=== PATIENT | female | born 2000 | race African-American/Black ===

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

== ENCOUNTER 2018-01-24 03:10 | Emergency (ER) | payer MEDICAID ==
[~2018-01-24] VITALS: Ht 172.7 cm; Wt 81.6 kg
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
--- OUTSIDE RECORDS SUMMARY | 2018-01-24 03:22 | XMS REPORT | Continuity of Care Document ---
Author Author [facility] Address Unknown Phone Unavailable Allergies Active Description Code Type Severity Reaction Onset Reported/Identified Relationship to Patient Clinical Status Yes adh Drug Allergy 12/01/2011 Yes adhesive Drug Allergy 12/01/2011 Yes tape Drug Allergy 12/01/2011 Yes Penicillins [id number] Drug Allergy Unknown N/A 11/21/2017 Yes TAPE TAPE Unknown N/A 11/21/2017 Medications There is no data. Problems Date Dx Coded Attending Type Code Diagnosis Diagnosed By 01/12/2008 780.52 INSOMNIA UNSPECIFIED 01/12/2008 783.6 POLYPHAGIA 01/12/2008 780.52 INSOMNIA UNSPECIFIED 01/12/2008 783.6 POLYPHAGIA 01/12/2008 780.52 INSOMNIA UNSPECIFIED 01/12/2008 783.6 POLYPHAGIA 01/12/2008 780.52 INSOMNIA UNSPECIFIED 01/12/2008 783.6 POLYPHAGIA 01/12/2008 780.52 INSOMNIA UNSPECIFIED 01/12/2008 783.6 POLYPHAGIA 01/12/2008 780.52 INSOMNIA UNSPECIFIED 01/12/2008 783.6 POLYPHAGIA 01/12/2008 RAJOTTE FINANCIAL ADVOCATE, ADIRANNA A 780.52 INSOMNIA UNSPECIFIED 01/12/2008 RAJOTTE FINANCIAL ADVOCATE, ADRIANNA A 783.6 POLYPHAGIA 01/12/2008 RAJOTTE FINANCIAL ADVOCATE, ADRIANNA A 780.52 INSOMNIA UNSPECIFIED 01/12/2008 RAJOTTE FINANCIAL ADVOCATE, ADRIANNA A 783.6 POLYPHAGIA 01/12/2008 RAJOTTE FINANCIAL ADVOCATE, ADRIANNA A 780.52 INSOMNIA UNSPECIFIED 01/12/2008 RAJOTTE FINANCIAL ADVOCATE, ADRIANNA A 783.6 POLYPHAGIA 01/12/2008 RAJOTTE FINANCIAL ADVOCATE, ADRIANNA A 780.52 INSOMNIA UNSPECIFIED 01/12/2008 RAJOTTE FINANCIAL ADVOCATE, ADRIANNA A 783.6 POLYPHAGIA 01/12/2008 RAJOTTE FINANCIAL ADVOCATE, ADRIANNA A 780.52 INSOMNIA UNSPECIFIED 01/12/2008 RAJOTTE FINANCIAL ADVOCATE, ADRIANNA A 783.6 POLYPHAGIA 01/12/2008 AMELIA SABILLON, [...] 780.79 MALAISE AND FATIGUE 01/26/2008 RAJJOSE GE FINANCIAL ADVOCATE, ADRIANNA A 780.79 MALAISE AND FATIGUE 01/26/2008 RAJJOSE GE FINANCIAL ADVOCATE, ADRIANNA A 780.79 MALAISE AND FATIGUE 01/26/2008 RAJJOSE GE FINANCIAL ADVOCATE, ADRIANNA A 780.79 MALAISE AND FATIGUE 01/26/2008 RAJOTTE FINANCIAL ADVOCATE, ADRIANNA A 780.79 MALAISE AND FATIGUE 01/26/2008 RAJOTTE FINANCIAL ADVOCATE, ADRIANNA A 780.79 MALAISE AND FATIGUE 01/26/2008 RAJOTTE FINANCIAL ADVOCATE, ADRIANNA A 780.79 MALAISE AND FATIGUE 01/26/2008 SAMEERA ANNE APRN N 780.79 MALAISE AND FATIGUE 10/30/2008 078.10 WARTS 10/30/2008 078.10 WARTS 10/30/2008 078.10 WARTS 10/30/2008 078.10 WARTS 10/30/2008 078.10 WARTS 10/30/2008 078.10 WARTS 10/30/2008 RAJOTTE FINANCIAL ADVOCATE, ADRIANNA A 078.10 WARTS 10/30/2008 RAJOTTE FINANCIAL ADVOCATE, ADRIANNA A 078.10 WARTS 10/30/2008 RAJOTTE FINANCIAL ADVOCATE, ADRIANNA A 078.10 WARTS 10/30/2008 RAJOTTE FINANCIAL ADVOCATE, ADRIANNA A 078.10 WARTS 10/30/2008 NABILAE FINANCIAL ADVOCATE, ADRIANNA A 078.10 WARTS 10/30/2008 RAJOTTE FINANCIAL ADVOCATE, ADRIANNA A 078.10 WARTS 10/30/2008 BRISEIDA JACOBSON FINANCIAL ADVOCATE, SAMEERA N 078.10 WARTS 12/30/2010 V70.3 SPORTS/SCHOOL EXAM 12/30/2010 V70.3 SPORTS/SCHOOL EXAM 12/30/2010 V70.3 SPORTS/SCHOOL EXAM 12/30/2010 V70.3 SPORTS/SCHOOL EXAM 12/30/2010 V70.3 SPORTS/SCHOOL EXAM 12/30/2010 V70.3 SPORTS/SCHOOL EXAM 12/30/2010 RAJOTTE FINANCIAL ADVOCATE, ADRIANNA A V70.3 SPORTS/SCHOOL EXAM 12/30/2010 RAJOTTE FINANCIAL ADVOCATE, ADRIANNA A V70.3 SPORTS/SCHOOL EXAM 12/30/2010 RAJOTTE FINANCIAL ADVOCATE, ADRIANNA A V70.3 SPORTS/SCHOOL EXAM 12/30/2010 ISSAOTTE FINANCIAL ADVOCATE, ADRIANNA A V70.3 SPORTS/SCHOOL EXAM 12/30/2010 NABILAE FINANCIAL ADVOCATE, ADRIANNA A V70.3 SPORTS/SCHOOL EXAM 12/30/2010 NABILAE FINANCIAL ADVOCATE, ADRIANNA A V70.3 SPORTS/SCHOOL EXAM 12/30/2010 SAMEERA ANNE APRN N V70.3 SPORTS/SCHOOL EXAM 05/14/2011 V20.2 WELL CHILD 05/14/2011 V20.2 WELL CHILD 05/14/2011 V20.2 WELL CHILD 05/14/2011 V20.2 WELL CHILD 05/14/2011 V20.2 WELL CHILD 05/14/2011 V20.2 WELL CHILD 05/14/2011 RAJJOSE GE FINANCIAL ADVOCATE, ADRIANNA A V20.2 WELL CHILD 05/14/2011 RAJJOSE GE FINANCIAL ADVOCATE, ADRIANNA A V20.2 WELL CHILD 05/14/2011 RAJOTTE FINANCIAL ADVOCATE, ADRIANNA A V20.2 WELL CHILD 05/14/2011 RAJOTTE FINANCIAL ADVOCATE, ADRIANNA A V20.2 WELL CHILD 05/14/2011 NABILAE FINANCIAL ADVOCATE, ADRIANNA A V20.2 WELL CHILD 05/14/2011 ISSAOTTE FINANCIAL ADVOCATE, ADRIANNA A V20.2 WELL CHILD 05/14/2011 SAMEERA ANNE APRN N V20.2 WELL CHILD 06/08/2011 465.9 UPPER RESPIRATORY INFECTION 06/08/2011 465.9 UPPER RESPIRATORY INFECTION 06/08/2011 465.9 UPPER RESPIRATORY INFECTION 06/08/2011 465.9 UPPER RESPIRATORY INFECTION 06/08/2011 465.9 Upper Respiratory Infection 06/08/2011 465.9 Upper Respiratory Infection 06/08/2011 AMELIA FINANCIAL ADVOCATE, ADRIANNA A 465.9 Upper Respiratory Infection 06/08/2011 ISSAOTTE FINANCIAL ADVOCATE, ADRIANNA A 465.9 Upper Respiratory Infection 06/08/2011 ISSAOTTE FINANCIAL ADVOCATE, ADRIANNA A 465.9 Upper Respiratory Infection 06/08/2011 ISSAOTTE FINANCIAL ADVOCATE, ADRIANNA A 465.9 Upper Respiratory Infection 06/08/2011 ISSAOTTE FINANCIAL ADVOCATE, ADRIANNA A 465.9 Upper Respiratory Infection 06/08/2011 AMELIA FINANCIAL ADVOCATE, ADRIANNA A 465.9 Upper Respiratory Infection 06/08/2011 [...] Luis A V65.45 Std Counseling 12/01/2011 AMELIA FINANCIAL ADVOCATEADRIANNA Luis A V25.02 CONTRACEPTION - ANY METHOD 12/01/2011 AMELIA FINANCIAL ADVOCATEADRIANNA Luis A V65.45 Std Counseling 12/01/2011 BRISEIDA PEREZLISETH FINANCIAL ADVOCATE, SAMEERA N V25.02 CONTRACEPTION - ANY METHOD 12/01/2011 BRISEIDA JACOBSON FINANCIAL ADVOCATE, SAMEERA N V65.45 Std Counseling 02/11/2012 462 [...] CISNEROS APRN A 477.9 RHINITIS 02/11/2012 ISSAROSY FINANCIAL ADVOCATEADRIANNA Luis A V04.89 GARDASIL (HPV) DX 02/11/2012 ADRIANNA CISNEROS APRN A 462 PHARYNGITIS ACUTE 02/11/2012 ADRIANNA CISNEROS APRN A 477.9 RHINITIS 02/11/2012 ADRIANNA CISNEROS APRN A V04.89 GARDASIL (HPV) DX 02/11/2012 ADRIANNA CISNEROS APRN A 462 PHARYNGITIS ACUTE 02/11/2012 RAJOTTE FINANCIAL ADVOCATE, ADRIANNA A 477.9 RHINITIS 02/11/2012 RAJJOSE GE FINANCIAL ADVOCATE, ADRIANNA A V04.89 GARDASIL (HPV) DX 02/11/2012 RAJOTTE FINANCIAL ADVOCATE, ADRIANNA A 462 PHARYNGITIS ACUTE 02/11/2012 RAJOTTE FINANCIAL ADVOCATE, ADRIANNA A 477.9 RHINITIS 02/11/2012 RAJOTTE FINANCIAL ADVOCATE, ADRIANNA A V04.89 GARDASIL (HPV) DX 02/11/2012 RAJOTTE FINANCIAL ADVOCATE, ADRIANNA A 462 PHARYNGITIS ACUTE 02/11/2012 RAJOTTE FINANCIAL ADVOCATE, ADRIANNA A 477.9 RHINITIS 02/11/2012 RAJOTTE FINANCIAL ADVOCATE, ADRIANNA A V04.89 GARDASIL (HPV) DX 02/11/2012 RAJOTTE FINANCIAL ADVOCATE, ADRIANNA A 462 PHARYNGITIS ACUTE 02/11/2012 RAJOTTE FINANCIAL ADVOCATE, ADRIANNA A 477.9 RHINITIS 02/11/2012 RAJOTTE FINANCIAL ADVOCATE, ADRIANNA A V04.89 GARDASIL (HPV) DX 02/11/2012 BRISEIDA JACOBSON APRN, SAMEERA N 462 PHARYNGITIS ACUTE 02/11/2012 BRISEIDA JACOBSON FINANCIAL ADVOCATE, SAMEERA N 477.9 RHINITIS 02/11/2012 BRISEIDA JACOBSON FINANCIAL ADVOCATE, SAMEERA N V04.89 GARDASIL (HPV) DX 02/18/2012 724.2 BACK PAIN, LOWER 02/18/2012 724.2 BACK PAIN, LOWER 02/18/2012 724.2 BACK PAIN, LOWER 02/18/2012 724.2 BACK PAIN, LOWER 02/18/2012 724.2 Back Pain, Lower 02/18/2012 724.2 Back Pain, Lower 02/18/2012 RAJOTTE FINANCIAL ADVOCATE, ADRIANNA A 724.2 Back Pain, Lower 02/18/2012 RAJOTTE FINANCIAL ADVOCATE, ADRIANNA A 724.2 Back Pain, Lower 02/18/2012 RAJOTTE FINANCIAL ADVOCATE, ADRIANNA A 724.2 Back Pain, Lower 02/18/2012 RAJOTTE FINANCIAL ADVOCATE, ADRIANNA A 724.2 Back Pain, Lower 02/18/2012 RAJOTTE FINANCIAL ADVOCATE, ADRIANNA A 724.2 Back Pain, Lower 02/18/2012 RAJOTTE FINANCIAL ADVOCATE, ADRIANNA A 724.2 Back Pain, Lower 02/18/2012 [...] V25.49 CONTRACEPTION SURVEILLANCE (REPEAT RX) 02/25/2012 NABILAE FINANCIAL ADVOCATE, ADRIANNA A V04.81 Flu Dx (3 Yrs And Above, Im) 02/25/2012 RAJJOSE GE FINANCIAL ADVOCATE, ADRIANNA A V25.49 CONTRACEPTION SURVEILLANCE (REPEAT RX) 02/25/2012 NABILAE FINANCIAL ADVOCATE, ADRIANNA A V04.81 Flu Dx (3 Yrs And Above, Im) 02/25/2012 RAJJOSE GE FINANCIAL ADVOCATE, ADRIANNA A V25.49 CONTRACEPTION SURVEILLANCE (REPEAT RX) 02/25/2012 RAJOTTE FINANCIAL ADVOCATE, ADRIANNA A V04.81 Flu Dx (3 Yrs And Above, Im) 02/25/2012 RAJOTTE FINANCIAL ADVOCATE, ADRIANNA A V25.49 CONTRACEPTION SURVEILLANCE (REPEAT RX) 02/25/2012 RAJOTTE FINANCIAL ADVOCATE, ADRIANNA A V04.81 Flu Dx (3 Yrs And Above, Im) 02/25/2012 RAJOTTE FINANCIAL ADVOCATE, ADRIANNA A V25.49 CONTRACEPTION SURVEILLANCE (REPEAT RX) 02/25/2012 RAJJOSE GE FINANCIAL ADVOCATE, ADRIANNA A V04.81 Flu Dx (3 Yrs And Above, Im) 02/25/2012 NABILAE FINANCIAL ADVOCATE, ADRIANNA A V25.49 CONTRACEPTION SURVEILLANCE (REPEAT RX) 02/25/2012 AMELIA SABILLON, ADRIANNA A V04.81 Flu Dx (3 Yrs And Above, Im) 02/25/2012 AMELIA SABILLON, ADRIANNA A V25.49 CONTRACEPTION SURVEILLANCE (REPEAT RX) 02/25/2012 SAMEERA ANNE APRN N V04.81 Flu Dx (3 Yrs And Above, Im) 02/25/2012 GOINS ANALISETH FINANCIAL ADVOCATE, SAMEERA N V25.49 CONTRACEPTION SURVEILLANCE (REPEAT RX) 05/26/2012 079.99 VIRAL SYNDROME 05/26/2012 564.00 CONSTIPATION 05/26/2012 079.99 VIRAL SYNDROME 05/26/2012 564.00 CONSTIPATION 05/26/2012 079.99 Viral Syndrome 05/26/2012 564.00 CONSTIPATION 05/26/2012 079.99 Viral Syndrome 05/26/2012 564.00 CONSTIPATION 05/26/2012 NABILAE FINANCIAL ADVOCATE, ADRIANNA A 079.99 Viral Syndrome 05/26/2012 NABILAE FINANCIAL ADVOCATE, ADRIANNA A 564.00 CONSTIPATION 05/26/2012 RAJOTTE FINANCIAL ADVOCATE, ADRIANNA A 079.99 Viral Syndrome 05/26/2012 RAJOTTE FINANCIAL ADVOCATE, ADRIANNA A 564.00 CONSTIPATION 05/26/2012 RAJOTTE FINANCIAL ADVOCATE, ADRIANNA A 079.99 Viral Syndrome 05/26/2012 RAJOTTE FINANCIAL ADVOCATE, ADRIANNA A 564.00 CONSTIPATION 05/26/2012 RAJOTTE FINANCIAL ADVOCATE, ADRIANNA A 079.99 Viral Syndrome 05/26/2012 RAJOTTE FINANCIAL ADVOCATE, ADRIANNA A 564.00 CONSTIPATION 05/26/2012 RAJOTTE FINANCIAL ADVOCATE, ADRIANNA A 079.99 Viral Syndrome 05/26/2012 RAJOTTE FINANCIAL ADVOCATE, ADRIANNA A 564.00 CONSTIPATION 05/26/2012 RAJOTTE FINANCIAL ADVOCATE, ADRIANNA A 079.99 Viral Syndrome 05/26/2012 RAJOTTE FINANCIAL ADVOCATE, ADRIANNA A 564.00 CONSTIPATION 05/26/2012 GOINS ANALISETH SABILLON SAMEERA N 079.99 Viral Syndrome 05/26/2012 BRISEIDA JACOBSON APRN SAMEERA N 564.00 CONSTIPATION 06/09/2012 787.91 DIARRHEA 06/09/2012 789.07 ABDOMINAL PAIN GENERALIZED 06/09/2012 787.91 Diarrhea 06/09/2012 789.07 Abdominal Pain Generalized 06/09/2012 787.91 Diarrhea 06/09/2012 789.07 Abdominal Pain Generalized 06/09/2012 RAJOTTE FINANCIAL ADVOCATE, ADRIANNA A 787.91 Diarrhea 06/09/2012 RAJOTTE FINANCIAL ADVOCATE, ADRIANNA A 789.07 Abdominal Pain Generalized 06/09/2012 RAJOTTE FINANCIAL ADVOCATE, ADRIANNA A 787.91 Diarrhea 06/09/2012 RAJOTTE FINANCIAL ADVOCATE, ADRIANNA A 789.07 Abdominal Pain Generalized 06/09/2012 RAJOTTE FINANCIAL ADVOCATE, ADRIANNA A 787.91 Diarrhea 06/09/2012 RAJOTTE FINANCIAL ADVOCATE, ADRIANNA A 789.07 Abdominal Pain Generalized 06/09/2012 RAJOTTE FINANCIAL ADVOCATE, ADRIANNA A 787.91 Diarrhea 06/09/2012 RAJOTTE FINANCIAL ADVOCATE, ADRIANNA A 789.07 Abdominal Pain Generalized 06/09/2012 RAJOTTE FINANCIAL ADVOCATE, ADRIANNA A 787.91 Diarrhea 06/09/2012 RAJOTTE FINANCIAL ADVOCATE, ADRIANNA A 789.07 Abdominal Pain Generalized 06/09/2012 RAJOTTE FINANCIAL ADVOCATE, ADRIANNA A 787.91 Diarrhea 06/09/2012 RAJOTTE FINANCIAL ADVOCATE, ADRIANNA A 789.07 Abdominal Pain Generalized 06/09/2012 GOINS CASHERO FINANCIAL ADVOCATE, SAMEERA N 787.91 Diarrhea 06/09/2012 GOINS CASHERO FINANCIAL ADVOCATE, SAMEERA N 789.07 Abdominal Pain Generalized 05/24/2013 RAJOTTE FINANCIAL ADVOCATE, ADRIANNA A 788.1 DYSURIA 05/24/2013 RAJOTTE FINANCIAL ADVOCATE, ADRIANNA A 788.1 DYSURIA 05/24/2013 RAJOTTE FINANCIAL ADVOCATE, ADRIANNA A 788.1 DYSURIA 05/24/2013 GOINS CASHERO FINANCIAL ADVOCATE, SAMEERA N 788.1 DYSURIA 11/07/2013 NABILAE FINANCIAL ADVOCATE, ADRIANNA A V03.89 MENINGOCOCCAL DX 11/07/2013 NABILAE FINANCIAL ADVOCATE, ADRIANNA A V03.89 MENINGOCOCCAL DX 11/07/2013 GOINS CASHLISETH FINANCIAL ADVOCATE, SAMEERA N V03.89 MENINGOCOCCAL DX 01/17/2014 AMELIA HUTCHISONN, ADRIANNA A 373.11 STYE (HORDEOLUM EXTERNUM) 01/17/2014 GOINS SAMEERA JACOBSON APRN N 373.11 STYE (HORDEOLUM EXTERNUM) 06/06/2014 GOINS SAMEERA JACOBSON APRN N 611.71 MASTODYNIA 09/03/2016 CARLIE HURLEY FINANCIAL ADVOCATE Ot N92.6 IRREGULAR MENSTRUATION, UNSPECIFIED 01/22/2017 CARLIE HURLEY FINANCIAL ADVOCATE Ot N92.6 IRREGULAR MENSTRUATION, UNSPECIFIED 01/22/2017 CARLIE HURLEY FINANCIAL ADVOCATE Ot N92.6 IRREGULAR MENSTRUATION, UNSPECIFIED 02/03/2017 CARLIE HURLEY R FINANCIAL ADVOCATE Ot N92.6 IRREGULAR MENSTRUATION, UNSPECIFIED 02/03/2017 CARLIE HURLEY R FINANCIAL ADVOCATE Ot N92.6 IRREGULAR MENSTRUATION, UNSPECIFIED 09/02/2017 CARLIE HURLEY APRN Ot N92.6 IRREGULAR MENSTRUATION, UNSPECIFIED 09/02/2017 JONATHAN MESSINA MD Ot N72 INFLAMMATORY DISEASE OF CERVIX UTERI [...] Ot Z32.01 ENCOUNTER FOR TEST, RESULT POS 11/21/2017 PAOLA KIDD MD Ot O99.89 OTH DISEASES AND CONDITIONS COMPL PREG/C 11/21/2017 PAOLA KIDD MD Ot R19.7 DIARRHEA, UNSPECIFIED 11/21/2017 PAOLA KIDD MD Ot Z3A.01 LESS THAN 8 WEEKS GESTATION OF 11/21/2017 PAOLA KIDD MD Ot Z88.0 ALLERGY STATUS TO PENICILLIN 11/21/2017 PAOLA KIDD MD Ot Z90.89 ACQUIRED ABSENCE OF OTHER ORGANS 11/23/2017 PAOLA KIDD MD Ot O99.89 OTH DISEASES AND CONDITIONS COMPL PREG/C 11/23/2017 PAOLA KIDD MD Ot R19.7 DIARRHEA, UNSPECIFIED 11/23/2017 PAOLA KIDD MD Ot Z3A.01 LESS THAN 8 WEEKS GESTATION OF 11/23/2017 PAOLA KIDD MD Ot Z88.0 ALLERGY STATUS TO PENICILLIN 11/23/2017 PAOLA KIDD MD Ot Z90.89 ACQUIRED ABSENCE OF OTHER ORGANS 01/05/2018 HURLEYCARLIE Giordano RAMANDEEP Ot N92.6 IRREGULAR MENSTRUATION, UNSPECIFIED Procedures Code Description [place] [address] THERAPUTIC INJ SQ/IM 05/26/2012 J1055 DEPO-PROVERA INJ 150 MG 05/26/2012 32354 URINE TEST (IN- HOUSE) 05/26/2012 40840 INFLUENZA A & B (IN-HOUSE) 05/26/2012 41495 UA LONG DIP 05/26/2012 09595 STREP A (IN-HOUSE) 08/11/2012 Family Pr Jessica, Geraldine 08/12/2012 OtolarynDelores Davidson 09/04/2012 21571 VISUAL ACUITY SCREEN 03/01/2013 72237 UA LONG DIP 05/24/2013 59271 CULTURE URINE 05/24/2013 34005 VISUAL ACUITY SCREEN 11/08/2013 27939 UA LONG DIP 08/29/2014 Results Test Result [...] in urine sediment by light microscopy NEGATIVE NR Complete urinalysis with reflex to culture NO [...] group - 11/21/17 10:53 ABO+Rh group OP [facility] Transfusion band number [id number] [facility] Whole blood basic metabolic panel - 11/21/17 [...] 10:53 Serum or plasma choriogonadotropin measurement (units/volume) 66893 m[iU]/mL <5 Encounters ACCT No. Visit Date/Time Discharge Status Pt. Type Provider Facility Loc./Unit Complaint [id number] 08/29/2014 13:57:00 08/29/2014 23:59:59 CLS Outpatient GOINS KAVON HUTCHISONJanelle SAMEERA Janelle [id number] 01/17/2014 11:04:00 01/17/2014 23:59:59 CLS Outpatient AMELIA RAMANDEEP ADRIANNA A [id number] 11/07/2013 10:22:00 11/07/2013 23:59:59 CLS Outpatient AMELIA RAMANDEEP ADRIANNA A [id number] 05/24/2013 13:10:00 05/24/2013 23:59:59 CLS Outpatient NABILABrayan RAMANDEEP ADRIANNA A [id number] 03/15/2013 10:45:00 03/15/2013 23:59:59 CLS Outpatient ISSAJOSE GBrayan RAMANDEEP ADRIANNA A [id number] 03/01/2013 11:01:00 03/01/2013 23:59:59 CLS Outpatient NABILABrayan ADRIANNA SABILLON [id number] 08/11/2012 14:41:00 08/11/2012 23:59:59 CLS Outpatient ISSAJOSE GBrayan RAMANDEEP ADRIANNA A [id number] 08/11/2012 14:41:00 08/11/2012 23:59:59 CLS Outpatient [id number] 06/09/2012 13:26:00 06/09/2012 23:59:59 CLS Outpatient [id number] 05/26/2012 12:07:00 05/26/2012 23:59:59 CLS Outpatient [id number] 04/21/2012 09:03:00 04/21/2012 23:59:59 CLS Outpatient [id number] 04/14/2012 00:00:00 04/14/2012 23:59:59 CLS Outpatient [id number] 09/01/2012 14:15:00 Document Registration [id number] 05/16/2012 12:11:14 RECURRING [id number] 03/08/2016 07:05:00 Document Registration [id number] 01/05/2018 13:39:00 01/05/2018 23:59:59 CLS Preadmit FENECH DO, DELORES S [facility] RAD [id number] 11/21/2017 10:13:00 11/21/2017 12:58:00 DIS Emergency MARTI GIANG, PAOLA S [facility] ER 7 WKS ,CRAMPING [id number] 11/01/2017 20:03:00 11/01/2017 20:21:00 DIS Emergency TICO DO, MARIA EUGENIA K [facility] ER POSITIVE TEST [id number] 09/02/2017 20:25:00 09/02/2017 22:52:00 DIS Emergency SIDDHARTH GIANG, JONATHAN Valentine [facility] ER SHARP ABD PAINS [id number] 09/03/2016 13:00:00 09/03/2016 23:59:59 CLS Outpatient CARLIE HURLEY APRN [facility] RAD N92.6 [id number] 12/08/2012 07:20:00 12/08/2012 13:00:00 DIS Outpatient [id number] 12/05/2012 15:12:00 12/05/2012 23:59:59 CLS Outpatient [id number] 10/22/2017 08:20:00 10/22/2017 23:59:59 [facility] [place] [id number] 10/22/2017 08:20:00 Document Registration [id number] 07/21/2017 11:20:00 Document Registration [id number] 04/26/2017 16:35:00 Document Registration
--- NOTE | 2018-01-24 03:32 | ED GU-Female ---
General Stated Complaint: SEVERE CRAMPING, PELVIC PAIN,16 WKS PREG Source: patient Exam Limitations: no limitations History of Present Illness Date Seen by Provider: Jan 24, 2018 Time Seen by Provider: 03:26 Initial Comments Patient presents to ER by private conveyance with chief complaint that she is having some sharp cramp-like, go pain that starts at her left flank and kidney area and radiates down into her left groin and urethra. She does not have painful urination, vaginal bleeding or discharge, nausea vomiting diarrhea or chills or fever. She is a with LMP of September 29, 2017 putting her at about 16 weeks 5 days. She is followed by Dr. YOUNG and she had an ultrasound done earlier that change her due date on the to 07 July. Allergies and Home Medications Allergies Coded Allergies: Penicillins (Unverified Adverse Reaction, Unknown, 11/21/17) MOM DOES NOT GIVE PT PCS R/T FAMILY ALLERGY Uncoded Allergies: TAPE (Allergy, Unknown, 11/21/17) Home Medications Azithromycin 200 Mg/5 Ml Susp.recon, 1 TSP PO DAILY, (Reported) 1 TSP EVERY DAY FOR 1 WEEK Hydrocodone Bit/Acetaminophen 480 Ml Solution, 2-3 TSP PO Q4HR PRN, (Reported) Patient Home Medication List Home Medication List Reviewed: Yes Review of Systems Review of Systems Constitutional: No chills, No diaphoresis EENTM: No ear pain, No hoarseness, No mouth swelling Respiratory: No cough, No short of breath Cardiovascular: No chest pain, No edema, No palpitations Gastrointestinal: see HPI, abdominal pain; No constipation, No diarrhea, No nausea, No vomiting : Yes Expected Date of Delivery: Jul 06, 2018 LMP: September 29, 2017 Past Gyzwoso-Jcpkfq-Bhkgpg Hx Patient Social History Alcohol Use: Denies Use Recreational Drug Use: No Smoking Status: Never a Smoker Recent Foreign Travel: No Contact w/Someone Who Travel: No Recent Hopitalizations: No Immunizations Up To Date PED Vaccines UTD: Yes Seasonal Allergies Seasonal Allergies: No Past Medical History Surgeries: Yes Tonsillectomy Respiratory: No Cardiac: No Neurological: No Reproductive Disorders: No Sexually Transmitted Disease: No Genitourinary: No Gastrointestinal: No Musculoskeletal: No Endocrine: No HEENT: No Cancer: No Psychosocial: No Integumentary: No Blood Disorders: No Family Medical History No Pertinent Family Hx Physical Exam Vital Signs Capillary Refill : Height, Weight, BMI Height: 5'5.00" Weight: 180lbs. oz. 81.825657hg; 28.12 BMI Method:Stated General Appearance: WD/WN, no apparent distress HEENT: PERRL/EOMI, pharynx normal Neck: non-tender, full range of motion, normal inspection Cardiovascular: normal peripheral pulses, regular rate, rhythm Respiratory: chest non-tender, lungs clear, normal breath sounds, no respiratory distress, no accessory muscle use Gastrointestinal: normal bowel sounds, soft, guarding (left lower quadrant), tenderness (left lower quadrant) Back: normal inspection; No CVA tenderness (R); CVA tenderness (L) (mild) Extremities: normal range of motion, normal capillary refill Neurologic/Psychiatric: alert, normal mood/affect, oriented x 3 Skin: normal color, warm/dry Progress/Results/Core Measures Suspected Sepsis SIRS Temperature: Pulse: Respiratory Rate: Laboratory Tests 01/24/18 03:40: White Blood Count 10.2 Blood Pressure / Mean: Laboratory Tests 01/24/18 03:40: Creatinine 0.61, Platelet Count 276, Total Bilirubin 0.3 Results/Orders Lab Results Laboratory Tests Test 01/24/18 03:40 Range/Units White Blood Count 10.2 4.3-11.0 10^3/uL Red Blood Count 4.90 4.35-5.85 10^6/uL Hemoglobin 13.8 11.5-16.0 G/DL Hematocrit 41 35-52 % Mean Corpuscular Volume 84 80-99 FL Mean Corpuscular Hemoglobin 28 25-34 PG Mean Corpuscular Hemoglobin Concent 34 32-36 G/DL Red Cell Distribution Width 13.4 10.0-14.5 % Platelet Count 276 130-400 10^3/uL Mean Platelet Volume 9.9 7.4-10.4 FL Neutrophils (%) (Auto) 75 42-75 % Lymphocytes (%) (Auto) 16 12-44 % Monocytes (%) (Auto) 8 0-12 % Eosinophils (%) (Auto) 2 0-10 % Basophils (%) (Auto) 0 0-10 % Neutrophils # (Auto) 7.6 1.8-7.8 X 10^3 Lymphocytes # (Auto) 1.6 1.0-4.0 X 10^3 Monocytes # (Auto) 0.8 0.0-1.0 X 10^3 Eosinophils # (Auto) 0.2 0.0-0.3 10^3/uL Basophils # (Auto) 0.0 0.0-0.1 10^3/uL Urine Color YELLOW Urine Clarity SLIGHTLY CLOUDY Urine pH 7 5-9 Urine Specific [place] 1.015 L 1.016-1.022 Urine Protein NEGATIVE NEGATIVE Urine Glucose (UA) NEGATIVE NEGATIVE Urine Ketones NEGATIVE NEGATIVE Urine Nitrite NEGATIVE NEGATIVE Urine Bilirubin NEGATIVE NEGATIVE Urine Urobilinogen NORMAL NORMAL MG/DL Urine Leukocyte Esterase NEGATIVE NEGATIVE Urine RBC (Auto) 4+ H NEGATIVE Urine RBC 50-100 H /HPF Urine WBC NONE /HPF Urine Squamous Epithelial Cells 0-2 /HPF Urine Crystals PRESENT H /LPF Urine Amorphous Sediment FEW SULAIMAN PHOSPHATE H /LPF Urine Bacteria NEGATIVE /HPF Urine Casts NONE /LPF Urine Mucus NEGATIVE /LPF Urine Culture Indicated NO Sodium Level 138 135-145 MMOL/L Potassium Level 3.6 3.6-5.0 MMOL/L Chloride Level 106 98-107 MMOL/L Carbon Dioxide Level 21 21-32 MMOL/L Anion Gap 11 5-14 MMOL/L Blood Urea Nitrogen 6 L 7-18 MG/DL Creatinine 0.61 0.60-1.30 MG/DL Estimat Glomerular Filtration Rate > 60 BUN/Creatinine Ratio 10 Glucose Level 89 70-105 MG/DL Calcium Level 10.0 8.5-10.1 MG/DL Corrected Calcium 10.1 8.5-10.1 MG/DL Total Bilirubin 0.3 0.1-1.0 MG/DL Aspartate Amino Transf (AST/SGOT) 13 5-34 U/L Alanine Aminotransferase (ALT/SGPT) 12 0-55 U/L Alkaline Phosphatase 49 40-136 U/L Total Protein 6.8 6.4-8.2 GM/DL Albumin 3.9 3.2-4.5 GM/DL Human Chorionic Gonadotropin, Quant 47039 H <5 MIU/ML My Orders Orders - RIO SMITH Ua Culture If Indicated (01/24/18 03:18) Urine Bedside (01/24/18 03:18) Hcg,Quantitative (01/24/18 03:18) Cbc With Automated Diff (01/24/18 03:18) Comprehensive Metabolic Panel (01/24/18 03:18) Acetaminophen Tablet (Tylenol Tablet) (01/24/18 03:45) Medications Given in ED Current Medications Medications Dose Ordered Sig/Anatoliy Route Start Time Stop Time Status Last Admin Dose Admin Acetaminophen 1,000 mg ONCE ONCE PO 01/24/18 03:45 01/24/18 03:46 DC 01/24/18 04:01 1,000 MG Vital Signs/I&O Capillary Refill : Progress Note #1: Time: 03:42 Progress Note Based on a Due date of July 06 we can back calculate that her LMP is September 29. Her left costovertebral tenderness to percussion, description of history and colicky sudden onset of symptoms is concerning for kidney stone versus urinary tract infection. She is in her second trimester so we could consider CT of her abdomen without contrast which she is in any apparent distress despite saying she is having 5 out of 10 pain. We'll start with Tylenol and reevaluate. We will encourage her to drink fluids. Patient is O+ so we do not need to consider RhoGAM. She is insistent that she's not having any vaginal bleeding. Progress Note #2: Time: 04:18 Progress Note There is microscopic hematuria 50-100 per high-power field, history and clinical exam consistent with possible kidney stone. Her discomfort level seems to be fairly low so we have offered her the option to just treat this with some Flomax and antibiotics and follow up outpatient with Dr. YOUNG and Dr. Zavaleta in the next couple days. We have also offered to do imaging if she wants to prove kidney stone which would be a CT scan low-dose for kidney stone study versus ultrasound looking for secondary signs which would be more time consuming , add to the cost but her not necessarily be therapeutic. She says she needs a moment to think about it. We discussed the risks, benefits and alternatives to all options. Progress Note #3: Time: 04:37 Progress Note After the patient had a moment to deliberate with her significant other she has decided to just trial the Flomax and take the antibiotic and follow up outpatient with either Dr. YOUNG or Dr. Zavaleta. The patient states the reason she has penicillin listed does not allergy is because her mom and her uncle also have penicillin allergy so her mother listed it. Departure Impression Primary Impression: Qualified Codes: Z3A.16 - 16 weeks gestation of Additional Impression: Acute left flank pain Disposition: 01 HOME, SELF-CARE Condition: Improved Departure-Patient Inst. Decision time for Depature: 04:41 Referrals: [facility] (PCP/Family) Primary Care Physician DELORES YOUNG ELIAS A MD Patient Instructions: Kidney Stones (DC) Add. Discharge Instructions: Drink lots of fluids. Use Tylenol 1000 mg every 8 hours as well as heating pads and distraction therapy. Call your NEUROPSYCHOLOGY DIRECTOR or Dr. Zavaleta, urologist if you're having difficulty tolerating the pain or your symptoms are going on for more than one to 2 days. mother superior the Keflex and take one tablet twice a day for the next 7 days to prevent bladder infection. mother superior the Flomax and take one a day to help pass the stone. Spend time laying on your side with the affected side up. If you have nausea you can take one tablet of Zofran every 8 hours as needed. Scripts Cephalexin (Cephalexin) 500 Mg Tablet 500 MG PO BID for 7 Days, #14 TAB 0 Refills Prov: RIO SMITH 01/24/18 Tamsulosin HCl (Flomax) 0.4 Mg Cap 0.4 MG PO HS for 7 Days, #7 CAP 0 Refills Prov: RIO SMITH 01/24/18 Ondansetron (Ondansetron Odt) 4 Mg Tab.rapdis 4 MG PO Q6H PRN for NAUSEA/VOMITING, #8 TAB 0 Refills Prov: RIO SMITH 01/24/18 Work/School Note: Family Work Note Patient Received Medical Care In the Emergency Department On: Jan 24, 2018 Patient Will Be Able to Return to Work/School On: Jan 25, 2018 Patient Restrictions: none Copy Copies To 1: DELORES YOUNG DO; CARYN ZAVALETA MD, TITUS J Jan 24, 2018 03:32
[2018-01-24] MEDS ORDERED: ACETAMINOPHEN 500 MG TAB (TYLENOL) PO ONE (03:45)
[2018-01-24 03:51] LABS: BASOPHILS % (AUTO) 0 % (0-10); EOSINOPHILS # (AUTO) 0.2 10^3/uL (0.0-0.3); EOSINOPHILS % (AUTO) 2 % (0-10); HEMATOCRIT 41 % (35-52); HEMOGLOBIN 13.8 G/DL (11.5-16.0); LYMPHOCYTES # (AUTO) 1.6 X 10^3 (1.0-4.0); LYMPHOCYTES % (AUTO) 16 % (12-44); MEAN CORPUSCULAR HEMOGLOBIN 28 PG (25-34); MEAN CORPUSCULAR HGB CONC 34 G/DL (32-36); MEAN CORPUSCULAR VOLUME 84 FL (80-99); MEAN PLATELET VOLUME 9.9 FL (7.4-10.4); MONOCYTES # (AUTO) 0.8 X 10^3 (0.0-1.0); MONOCYTES % (AUTO) 8 % (0-12); NEUTROPHILS # (AUTO) 7.6 X 10^3 (1.8-7.8); NEUTROPHILS % (AUTO) 75 % (42-75); PLATELET COUNT 276 10^3/uL (130-400); RED CELL DISTRIBUTION WIDTH 13.4 % (10.0-14.5); WHITE BLOOD COUNT 10.2 10^3/uL (4.3-11.0)
[2018-01-24 03:54] LABS: BILIRUBIN,URINE NEGATIVE (NEGATIVE); CLARITY,URINE SLIGHTLY CLOUDY; COLOR,URINE YELLOW; GLUCOSE, URINE (UA) NEGATIVE (NEGATIVE); KETONES,URINE NEGATIVE (NEGATIVE); LEUKOCYTE ESTERASE ,URINE NEGATIVE (NEGATIVE); NITRITE,URINE NEGATIVE (NEGATIVE); PH,URINE 7 (5-9); PROTEIN,URINE NEGATIVE (NEGATIVE); UROBILINOGEN,URINE NORMAL (NORMAL)
[2018-01-24 04:05] LABS: AMORPHOUS SEDIMENT,UR FEW AMOR PHOSPHATE /LPF; BACTERIA,URINE NEGATIVE /HPF; RBC,URINE 50-100 /HPF; SQUAMOUS EPITHELIAL CELL,UR 0-2 /HPF
[2018-01-24 04:14] LABS: ALANINE AMINOTRANSFERASE 12 U/L (0-55); ALBUMIN 3.9 GM/DL (3.2-4.5); ALKALINE PHOSPHATASE 49 U/L (40-136); BILIRUBIN,TOTAL 0.3 MG/DL (0.1-1.0); BUN/CREATININE RATIO 10; CARBON DIOXIDE 21 MMOL/L (21-32); CHLORIDE 106 MMOL/L (98-107); CREATININE SERUM 0.61 MG/DL (0.60-1.30); GFR ESTIMATED > 60; GLUCOSE 89 MG/DL (70-105); POTASSIUM 3.6 MMOL/L (3.6-5.0); SODIUM 138 MMOL/L (135-145); TOTAL PROTEIN 6.8 GM/DL (6.4-8.2)
[2018-01-24] MEDS ORDERED: ONDA4TAB11 PO (04:48)
[2018-01-24] MEDS ORDERED: TAMS0.4C98 PO (04:48)
[2018-01-24] MEDS ORDERED: CEPH500T PO (04:48)
== END 2018-01-24 04:56 | disposition home or self-care (01) ==
LOC: EDUNIT# 03:10 → ER 03:14
DX: O26.892 Other specified pregnancy related conditions, second trimester (principal); R10.2 Pelvic and perineal pain; Z3A.16 16 weeks gestation of pregnancy; Z88.0 Allergy status to penicillin; Z90.89 Acquired absence of other organs; Z91.048 Other nonmedicinal substance allergy status
CPT/HCPCS: 36415; 80053; 81000; 84702; 84703; 85025

== ENCOUNTER → 2018-02-18 | Outpatient (CLI) | payer MEDICAID ==
[~2018-02-18] MED LIST changes: +CEPH500T PO; +ONDA4TAB11 PO; +TAMS0.4C98 PO
--- NOTE | 2018-02-18 12:07 | Diagnostic Imaging Report ---
INDICATION: survey. TECHNIQUE: Multiple real-time grayscale images were obtained over the gravid uterus. COMPARISON: There are no prior studies available for comparison. FINDINGS: There is a single live fetus in variable presentation. heart motion was noted, and a rate of 167 BPM was recorded. There are no abnormalities identified, although the four-chamber heart view is less than optimal. I would recommend that a short-term (4-6 week) followup exam be performed for further study. The placenta is posterior, and there is no previa. The amniotic fluid volume is within normal limits. The cervix was measured and is estimated to be 4 cm in length. The growth parameters are fairly uniform. IMPRESSION: 1. There is a single live fetus of approximately 20 weeks gestation, +/-1.5 weeks. The EDC is July 08, 2018. 2. There were no abnormalities identified, but the four-chamber heart view is less than optimal. Recommendations as above. 3. The growth parameters are fairly uniform. Biometrical measurements are as follows: Biparietal 4.69 cm, age 20 weeks 2 days. Head circumference 17.41 cm, age 20 weeks 0 days. Abdominal circumference 14.18 cm, age 19 weeks 4 days. Femur length 3.16 cm, age 19 weeks 6 days. Sonographic estimate age: 20 weeks 0 days. Sonographic estimated date of delivery: 07/08/2018. Estimated Weight: 309 gm (+/- 45 gm). LMP percentile: 24%. heart rate: 167 beats per minute. number: 1 of 1. Dictated by: Dictated on workstation # [id number]
== END ==
LOC: RAD 09:56
PROVIDERS: ATTEND Obstetrics & Gynecology
DX: Z36.89 Encounter for other specified antenatal screening (principal); Z3A.20 20 weeks gestation of pregnancy
CPT/HCPCS: 76805

== ENCOUNTER 2018-03-14 18:56 | Emergency (ER) | payer MEDICAID ==
[~2018-03-14] VITALS: Ht 162.6 cm; Wt 86.2 kg
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
--- OUTSIDE RECORDS SUMMARY | 2018-03-14 19:05 | XMS REPORT | Continuity of Care Document ---
Author Author [facility] Address Unknown Phone Unavailable Allergies Active Description Code Type Severity Reaction Onset Reported/Identified Relationship to Patient Clinical Status Yes adh Drug Allergy 12/01/2011 Yes adhesive Drug Allergy 12/01/2011 Yes tape Drug Allergy 12/01/2011 Yes Penicillins [id number] Drug Allergy Unknown N/A 11/21/2017 Yes TAPE [...] INSOMNIA UNSPECIFIED 01/12/2008 783.6 POLYPHAGIA 01/12/2008 RAJOTTE AUCTIONEER AUTOMOBILE, ADRIANNA A 780.52 INSOMNIA UNSPECIFIED 01/12/2008 RAJOTTE AUCTIONEER AUTOMOBILE, ADRIANNA A 783.6 POLYPHAGIA 01/12/2008 RAJOTTE AUCTIONEER AUTOMOBILE, ADRIANNA A 780.52 INSOMNIA UNSPECIFIED 01/12/2008 RAJOTTE AUCTIONEER AUTOMOBILE, ADRIANNA A 783.6 POLYPHAGIA 01/12/2008 RAJOTTE AUCTIONEER AUTOMOBILE, ADRIANNA A 780.52 INSOMNIA UNSPECIFIED 01/12/2008 RAJOTTE AUCTIONEER AUTOMOBILE, ADRIANNA A 783.6 POLYPHAGIA 01/12/2008 RAJOTTE AUCTIONEER AUTOMOBILE, ADRIANNA A 780.52 INSOMNIA UNSPECIFIED 01/12/2008 RAJOTTE AUCTIONEER AUTOMOBILE, ADRIANNA A 783.6 POLYPHAGIA 01/12/2008 RAJOTTE AUCTIONEER AUTOMOBILE, ADRIANNA A 780.52 INSOMNIA UNSPECIFIED 01/12/2008 RAJOTTE AUCTIONEER AUTOMOBILE, ADRIANNA A 783.6 POLYPHAGIA 01/12/2008 AMELIA SABILLON, [...] 780.79 MALAISE AND FATIGUE 01/26/2008 RAJJOSE GE AUCTIONEER AUTOMOBILE, ADRIANNA A 780.79 MALAISE AND FATIGUE 01/26/2008 RAJJOSE GE AUCTIONEER AUTOMOBILE, ADRIANNA A 780.79 MALAISE AND FATIGUE 01/26/2008 RAJJOSE GE AUCTIONEER AUTOMOBILE, ADRIANNA A 780.79 MALAISE AND FATIGUE 01/26/2008 RAJOTTE AUCTIONEER AUTOMOBILE, ADRIANNA A 780.79 MALAISE AND FATIGUE 01/26/2008 RAJOTTE AUCTIONEER AUTOMOBILE, ADRIANNA A 780.79 MALAISE AND FATIGUE 01/26/2008 RAJOTTE AUCTIONEER AUTOMOBILE, ADRIANNA A 780.79 MALAISE AND FATIGUE 01/26/2008 SAMEERA ANNE APRN N 780.79 MALAISE AND FATIGUE 10/30/2008 078.10 WARTS 10/30/2008 078.10 WARTS 10/30/2008 078.10 WARTS 10/30/2008 078.10 WARTS 10/30/2008 078.10 WARTS 10/30/2008 078.10 WARTS 10/30/2008 RAJOTTE AUCTIONEER AUTOMOBILE, ADRIANNA A 078.10 WARTS 10/30/2008 RAJOTTE AUCTIONEER AUTOMOBILE, ADRIANNA A 078.10 WARTS 10/30/2008 RAJOTTE AUCTIONEER AUTOMOBILE, ADRIANNA A 078.10 WARTS 10/30/2008 RAJOTTE AUCTIONEER AUTOMOBILE, ADRIANNA A 078.10 WARTS 10/30/2008 NABILAE AUCTIONEER AUTOMOBILE, ADRIANNA A 078.10 WARTS 10/30/2008 RAJOTTE AUCTIONEER AUTOMOBILE, ADRIANNA A 078.10 WARTS 10/30/2008 BRISEIDA JACOBSON AUCTIONEER AUTOMOBILE, SAMEERA N 078.10 WARTS 12/30/2010 V70.3 SPORTS/SCHOOL EXAM 12/30/2010 V70.3 SPORTS/SCHOOL EXAM 12/30/2010 V70.3 SPORTS/SCHOOL EXAM 12/30/2010 V70.3 SPORTS/SCHOOL EXAM 12/30/2010 V70.3 SPORTS/SCHOOL EXAM 12/30/2010 V70.3 SPORTS/SCHOOL EXAM 12/30/2010 RAJOTTE AUCTIONEER AUTOMOBILE, ADRIANNA A V70.3 SPORTS/SCHOOL EXAM 12/30/2010 RAJOTTE AUCTIONEER AUTOMOBILE, ADRIANNA A V70.3 SPORTS/SCHOOL EXAM 12/30/2010 RAJOTTE AUCTIONEER AUTOMOBILE, ADRIANNA A V70.3 SPORTS/SCHOOL EXAM 12/30/2010 ISSAOTTE AUCTIONEER AUTOMOBILE, ADRIANNA A V70.3 SPORTS/SCHOOL EXAM 12/30/2010 NABILAE AUCTIONEER AUTOMOBILE, ADRIANNA A V70.3 SPORTS/SCHOOL EXAM 12/30/2010 NABILAE AUCTIONEER AUTOMOBILE, ADRIANNA A V70.3 SPORTS/SCHOOL EXAM 12/30/2010 SAMEERA ANNE APRN N V70.3 SPORTS/SCHOOL EXAM 05/14/2011 V20.2 WELL CHILD 05/14/2011 V20.2 WELL CHILD 05/14/2011 V20.2 WELL CHILD 05/14/2011 V20.2 WELL CHILD 05/14/2011 V20.2 WELL CHILD 05/14/2011 V20.2 WELL CHILD 05/14/2011 RAJJOSE GE AUCTIONEER AUTOMOBILE, ADRIANNA A V20.2 WELL CHILD 05/14/2011 RAJJOSE GE AUCTIONEER AUTOMOBILE, ADRIANNA A V20.2 WELL CHILD 05/14/2011 RAJOTTE AUCTIONEER AUTOMOBILE, ADRIANNA A V20.2 WELL CHILD 05/14/2011 RAJOTTE AUCTIONEER AUTOMOBILE, ADRIANNA A V20.2 WELL CHILD 05/14/2011 NABILAE AUCTIONEER AUTOMOBILE, ADRIANNA A V20.2 WELL CHILD 05/14/2011 ISSAOTTE AUCTIONEER AUTOMOBILE, ADRIANNA A V20.2 WELL CHILD 05/14/2011 SAMEERA ANNE APRN N V20.2 WELL CHILD 06/08/2011 465.9 UPPER RESPIRATORY INFECTION 06/08/2011 465.9 UPPER RESPIRATORY INFECTION 06/08/2011 465.9 UPPER RESPIRATORY INFECTION 06/08/2011 465.9 UPPER RESPIRATORY INFECTION 06/08/2011 465.9 Upper Respiratory Infection 06/08/2011 465.9 Upper Respiratory Infection 06/08/2011 AMELIA AUCTIONEER AUTOMOBILE, ADRIANNA A 465.9 Upper Respiratory Infection 06/08/2011 ISSAOTTE AUCTIONEER AUTOMOBILE, ADRIANNA A 465.9 Upper Respiratory Infection 06/08/2011 ISSAOTTE AUCTIONEER AUTOMOBILE, ADRIANNA A 465.9 Upper Respiratory Infection 06/08/2011 ISSAOTTE AUCTIONEER AUTOMOBILE, ADRIANNA A 465.9 Upper Respiratory Infection 06/08/2011 ISSAOTTE AUCTIONEER AUTOMOBILE, ADRIANNA A 465.9 Upper Respiratory Infection 06/08/2011 AMELIA AUCTIONEER AUTOMOBILE, ADRIANNA A 465.9 Upper Respiratory Infection 06/08/2011 [...] V25.02 CONTRACEPTION - ANY METHOD 12/01/2011 NABILABrayan HUTHCISONADRIANNA Luis A V65.45 Std Counseling 12/01/2011 AMELIA AUCTIONEER AUTOMOBILEADRIANNA Luis A V25.02 CONTRACEPTION - ANY METHOD 12/01/2011 AMELIA AUCTIONEER AUTOMOBILEADRIANNA Luis A V65.45 Std Counseling 12/01/2011 BRISEIDA PEREZLISETH AUCTIONEER AUTOMOBILE, SAMEERA N V25.02 CONTRACEPTION - ANY METHOD 12/01/2011 BRISEIDA JACOBSON AUCTIONEER AUTOMOBILE, SAMEERA N V65.45 Std Counseling 02/11/2012 462 [...] CISNEROS APRN A 477.9 RHINITIS 02/11/2012 ISSAROSY AUCTIONEER AUTOMOBILEADRIANNA Luis A V04.89 GARDASIL (HPV) DX 02/11/2012 ADRIANNA CISNEROS APRN A 462 PHARYNGITIS ACUTE 02/11/2012 ADRIANNA CISNEROS APRN A 477.9 RHINITIS 02/11/2012 ADRIANNA CISNEROS APRN A V04.89 GARDASIL (HPV) DX 02/11/2012 ADRIANNA CISNEROS APRN A 462 PHARYNGITIS ACUTE 02/11/2012 RAJOTTE AUCTIONEER AUTOMOBILE, ADRIANNA A 477.9 RHINITIS 02/11/2012 RAJJOSE GE AUCTIONEER AUTOMOBILE, ADRIANNA A V04.89 GARDASIL (HPV) DX 02/11/2012 RAJOTTE AUCTIONEER AUTOMOBILE, ADRIANNA A 462 PHARYNGITIS ACUTE 02/11/2012 RAJOTTE AUCTIONEER AUTOMOBILE, ADRIANNA A 477.9 RHINITIS 02/11/2012 RAJOTTE AUCTIONEER AUTOMOBILE, ADRIANNA A V04.89 GARDASIL (HPV) DX 02/11/2012 RAJOTTE AUCTIONEER AUTOMOBILE, ADRIANNA A 462 PHARYNGITIS ACUTE 02/11/2012 RAJOTTE AUCTIONEER AUTOMOBILE, ADRIANNA A 477.9 RHINITIS 02/11/2012 RAJOTTE AUCTIONEER AUTOMOBILE, ADRIANNA A V04.89 GARDASIL (HPV) DX 02/11/2012 RAJOTTE AUCTIONEER AUTOMOBILE, ADRIANNA A 462 PHARYNGITIS ACUTE 02/11/2012 RAJOTTE AUCTIONEER AUTOMOBILE, ADRIANNA A 477.9 RHINITIS 02/11/2012 RAJOTTE AUCTIONEER AUTOMOBILE, ADRIANNA A V04.89 GARDASIL (HPV) DX 02/11/2012 BRISEIDA JACOBSON APRN, SAMEERA N 462 PHARYNGITIS ACUTE 02/11/2012 BRISEIDA JACOBSON AUCTIONEER AUTOMOBILE, SAMEERA N 477.9 RHINITIS 02/11/2012 BRISEIDA JACOBSON AUCTIONEER AUTOMOBILE, SAMEERA N V04.89 GARDASIL (HPV) DX 02/18/2012 724.2 BACK PAIN, LOWER 02/18/2012 724.2 BACK PAIN, LOWER 02/18/2012 724.2 BACK PAIN, LOWER 02/18/2012 724.2 BACK PAIN, LOWER 02/18/2012 724.2 Back Pain, Lower 02/18/2012 724.2 Back Pain, Lower 02/18/2012 RAJOTTE AUCTIONEER AUTOMOBILE, ADRIANNA A 724.2 Back Pain, Lower 02/18/2012 RAJOTTE AUCTIONEER AUTOMOBILE, ADRIANNA A 724.2 Back Pain, Lower 02/18/2012 RAJOTTE AUCTIONEER AUTOMOBILE, ADRIANNA A 724.2 Back Pain, Lower 02/18/2012 RAJOTTE AUCTIONEER AUTOMOBILE, ADRIANNA A 724.2 Back Pain, Lower 02/18/2012 RAJOTTE AUCTIONEER AUTOMOBILE, ADRIANNA A 724.2 Back Pain, Lower 02/18/2012 RAJOTTE AUCTIONEER AUTOMOBILE, ADRIANNA A 724.2 Back Pain, Lower 02/18/2012 [...] V25.49 CONTRACEPTION SURVEILLANCE (REPEAT RX) 02/25/2012 NABILAE AUCTIONEER AUTOMOBILE, ADRIANNA A V04.81 Flu Dx (3 Yrs And Above, Im) 02/25/2012 RAJJOSE GE AUCTIONEER AUTOMOBILE, ADRIANNA A V25.49 CONTRACEPTION SURVEILLANCE (REPEAT RX) 02/25/2012 NABILAE AUCTIONEER AUTOMOBILE, ADRIANNA A V04.81 Flu Dx (3 Yrs And Above, Im) 02/25/2012 RAJJOSE GE AUCTIONEER AUTOMOBILE, ADRIANNA A V25.49 CONTRACEPTION SURVEILLANCE (REPEAT RX) 02/25/2012 RAJOTTE AUCTIONEER AUTOMOBILE, ADRIANNA A V04.81 Flu Dx (3 Yrs And Above, Im) 02/25/2012 RAJOTTE AUCTIONEER AUTOMOBILE, ADRIANNA A V25.49 CONTRACEPTION SURVEILLANCE (REPEAT RX) 02/25/2012 RAJOTTE AUCTIONEER AUTOMOBILE, ADRIANNA A V04.81 Flu Dx (3 Yrs And Above, Im) 02/25/2012 RAJOTTE AUCTIONEER AUTOMOBILE, ADRIANNA A V25.49 CONTRACEPTION SURVEILLANCE (REPEAT RX) 02/25/2012 RAJJOSE GE AUCTIONEER AUTOMOBILE, ADRIANNA A V04.81 Flu Dx (3 Yrs And Above, Im) 02/25/2012 NABILAE AUCTIONEER AUTOMOBILE, ADRIANNA A V25.49 CONTRACEPTION SURVEILLANCE (REPEAT RX) 02/25/2012 AMELIA SABILLON, ADRIANNA A V04.81 Flu Dx (3 Yrs And Above, Im) 02/25/2012 AMELIA SABILLON, ADRIANNA A V25.49 CONTRACEPTION SURVEILLANCE (REPEAT RX) 02/25/2012 SAMEERA ANNE APRN N V04.81 Flu Dx (3 Yrs And Above, Im) 02/25/2012 GOINS ANALISETH AUCTIONEER AUTOMOBILE, SAMEERA N V25.49 CONTRACEPTION SURVEILLANCE (REPEAT RX) 05/26/2012 079.99 VIRAL SYNDROME 05/26/2012 564.00 CONSTIPATION 05/26/2012 079.99 VIRAL SYNDROME 05/26/2012 564.00 CONSTIPATION 05/26/2012 079.99 Viral Syndrome 05/26/2012 564.00 CONSTIPATION 05/26/2012 079.99 Viral Syndrome 05/26/2012 564.00 CONSTIPATION 05/26/2012 NABILAE AUCTIONEER AUTOMOBILE, ADRIANNA A 079.99 Viral Syndrome 05/26/2012 NABILAE AUCTIONEER AUTOMOBILE, ADRIANNA A 564.00 CONSTIPATION 05/26/2012 RAJOTTE AUCTIONEER AUTOMOBILE, ADRIANNA A 079.99 Viral Syndrome 05/26/2012 RAJOTTE AUCTIONEER AUTOMOBILE, ADRIANNA A 564.00 CONSTIPATION 05/26/2012 RAJOTTE AUCTIONEER AUTOMOBILE, ADRIANNA A 079.99 Viral Syndrome 05/26/2012 RAJOTTE AUCTIONEER AUTOMOBILE, ADRIANNA A 564.00 CONSTIPATION 05/26/2012 RAJOTTE AUCTIONEER AUTOMOBILE, ADRIANNA A 079.99 Viral Syndrome 05/26/2012 RAJOTTE AUCTIONEER AUTOMOBILE, ADRIANNA A 564.00 CONSTIPATION 05/26/2012 RAJOTTE AUCTIONEER AUTOMOBILE, ADRIANNA A 079.99 Viral Syndrome 05/26/2012 RAJOTTE AUCTIONEER AUTOMOBILE, ADRIANNA A 564.00 CONSTIPATION 05/26/2012 RAJOTTE AUCTIONEER AUTOMOBILE, ADRIANNA A 079.99 Viral Syndrome 05/26/2012 RAJOTTE AUCTIONEER AUTOMOBILE, ADRIANNA A 564.00 CONSTIPATION 05/26/2012 GOINS ANALISETH SABILLON SAMEERA N 079.99 Viral Syndrome 05/26/2012 BRISEIDA JACOBSON APRN SAMEERA N 564.00 CONSTIPATION 06/09/2012 787.91 DIARRHEA 06/09/2012 789.07 ABDOMINAL PAIN GENERALIZED 06/09/2012 787.91 Diarrhea 06/09/2012 789.07 Abdominal Pain Generalized 06/09/2012 787.91 Diarrhea 06/09/2012 789.07 Abdominal Pain Generalized 06/09/2012 RAJOTTE AUCTIONEER AUTOMOBILE, ADRIANNA A 787.91 Diarrhea 06/09/2012 RAJOTTE AUCTIONEER AUTOMOBILE, ADRIANNA A 789.07 Abdominal Pain Generalized 06/09/2012 RAJOTTE AUCTIONEER AUTOMOBILE, ADRIANNA A 787.91 Diarrhea 06/09/2012 RAJOTTE AUCTIONEER AUTOMOBILE, ADRIANNA A 789.07 Abdominal Pain Generalized 06/09/2012 RAJOTTE AUCTIONEER AUTOMOBILE, ADRIANNA A 787.91 Diarrhea 06/09/2012 RAJOTTE AUCTIONEER AUTOMOBILE, ADRIANNA A 789.07 Abdominal Pain Generalized 06/09/2012 RAJOTTE AUCTIONEER AUTOMOBILE, ADRIANNA A 787.91 Diarrhea 06/09/2012 RAJOTTE AUCTIONEER AUTOMOBILE, ADRIANNA A 789.07 Abdominal Pain Generalized 06/09/2012 RAJOTTE AUCTIONEER AUTOMOBILE, ADRIANNA A 787.91 Diarrhea 06/09/2012 RAJOTTE AUCTIONEER AUTOMOBILE, ADRIANNA A 789.07 Abdominal Pain Generalized 06/09/2012 RAJOTTE AUCTIONEER AUTOMOBILE, ADRIANNA A 787.91 Diarrhea 06/09/2012 RAJOTTE AUCTIONEER AUTOMOBILE, ADRIANNA A 789.07 Abdominal Pain Generalized 06/09/2012 GOINS CASHERO AUCTIONEER AUTOMOBILE, SAMEERA N 787.91 Diarrhea 06/09/2012 GOINS CASHERO AUCTIONEER AUTOMOBILE, SAMEERA N 789.07 Abdominal Pain Generalized 05/24/2013 RAJOTTE AUCTIONEER AUTOMOBILE, ADRIANNA A 788.1 DYSURIA 05/24/2013 RAJOTTE AUCTIONEER AUTOMOBILE, ADRIANNA A 788.1 DYSURIA 05/24/2013 RAJOTTE AUCTIONEER AUTOMOBILE, ADRIANNA A 788.1 DYSURIA 05/24/2013 GOINS CASHERO AUCTIONEER AUTOMOBILE, SAMEERA N 788.1 DYSURIA 11/07/2013 NABILAE AUCTIONEER AUTOMOBILE, ADRIANNA A V03.89 MENINGOCOCCAL DX 11/07/2013 NABILAE AUCTIONEER AUTOMOBILE, ADRIANNA A V03.89 MENINGOCOCCAL DX 11/07/2013 GOINS CASHLISETH AUCTIONEER AUTOMOBILE, SAMEERA N V03.89 MENINGOCOCCAL DX 01/17/2014 AMELIA HUTCHISONN, ADRIANNA A 373.11 STYE (HORDEOLUM EXTERNUM) 01/17/2014 GOINS SAMEERA JACOBSON APRN N 373.11 STYE (HORDEOLUM EXTERNUM) 06/06/2014 GOINS SAMEERA JACOBSON APRN N 611.71 MASTODYNIA 09/03/2016 CARLIE HURLEY AUCTIONEER AUTOMOBILE Ot N92.6 IRREGULAR MENSTRUATION, UNSPECIFIED 01/22/2017 CARLIE HURLEY AUCTIONEER AUTOMOBILE Ot N92.6 IRREGULAR MENSTRUATION, UNSPECIFIED 01/22/2017 CARLIE HURLEY AUCTIONEER AUTOMOBILE Ot N92.6 IRREGULAR MENSTRUATION, UNSPECIFIED 02/03/2017 CARLIE HURLEY R AUCTIONEER AUTOMOBILE Ot N92.6 IRREGULAR MENSTRUATION, UNSPECIFIED 02/03/2017 CARLIE HURLEY R AUCTIONEER AUTOMOBILE Ot N92.6 IRREGULAR MENSTRUATION, UNSPECIFIED 09/02/2017 CARLIE [...] ORGANS 11/23/2017 PAOLA KIDD MD Ot O99.89 OT DISEASES AND CONDITIONS COMPL PREG/C 11/23/2017 PAOLA KIDD MD Ot R19.7 DIARRHEA, UNSPECIFIED 11/23/2017 MARTI GIANG PAOLA Kayden Ot Z3A.01 LESS THAN 8 WEEKS GESTATION OF 11/23/2017 PAOLA KIDD MD Ot Z88.0 ALLERGY STATUS TO PENICILLIN 11/23/2017 PAOLA KIDD MD Ot Z90.89 ACQUIRED ABSENCE OF OTHER ORGANS 01/05/2018 CARLIE HURLEY AUCTIONEER AUTOMOBILE Ot N92.6 IRREGULAR MENSTRUATION, UNSPECIFIED 01/24/2018 CARLIE HURLEY AUCTIONEER AUTOMOBILE Ot N92.6 IRREGULAR MENSTRUATION, UNSPECIFIED 01/24/2018 RIO SMITH MD Ot O26.892 OT RELATED CONDITIONS, SECOND 01/24/2018 RIO SMITH MD Ot R10.2 PELVIC AND PERINEAL PAIN 01/24/2018 RIO SMITH MD Ot Z3A.16 16 WEEKS GESTATION OF 01/24/2018 RIO SMITH MD Ot Z88.0 ALLERGY STATUS TO PENICILLIN 01/24/2018 RIO SMITH MD Ot Z90.89 ACQUIRED ABSENCE OF OTHER ORGANS 01/24/2018 RIO SMITH MD Ot Z91.048 OTHER NONMEDICINAL SUBSTANCE ALLERGY STA 01/26/2018 RIO SMITH MD Ot O26.892 OT RELATED CONDITIONS, SECOND 01/26/2018 RIO SMITH MD Ot R10.2 PELVIC AND PERINEAL PAIN 01/26/2018 RIO SMITH MD Ot Z3A.16 16 WEEKS GESTATION OF 01/26/2018 RIO SMITH MD Ot Z88.0 ALLERGY STATUS TO PENICILLIN 01/26/2018 RIO SMITH MD Ot Z90.89 ACQUIRED ABSENCE OF OTHER ORGANS 01/26/2018 RIO SMITH MD Ot Z91.048 OTHER NONMEDICINAL SUBSTANCE ALLERGY STA 02/18/2018 CARLIE HURLEY R AUCTIONEER AUTOMOBILE Ot N92.6 IRREGULAR MENSTRUATION, UNSPECIFIED 03/03/2018 DELORES YOUNG DO Ot Z36.89 ENCOUNTER FOR OTHER SPECIFIED 03/03/2018 DELORES YOUNG DO S Ot Z3A.20 20 WEEKS GESTATION OF Procedures Code Description [place] [address] THERAPUTIC INJ SQ/IM 05/26/2012 J1055 DEPO-PROVERA INJ 150 MG 05/26/2012 43462 URINE TEST (IN- HOUSE) 05/26/2012 18158 INFLUENZA A & B (IN-HOUSE) 05/26/2012 37215 UA LONG DIP 05/26/2012 62021 STREP A (IN-HOUSE) 08/11/2012 Family Geraldine García 08/12/2012 OtolarDelores Flores 09/04/2012 57093 VISUAL ACUITY SCREEN 03/01/2013 98408 UA LONG DIP 05/24/2013 38252 CULTURE URINE 05/24/2013 69855 VISUAL ACUITY SCREEN 11/08/2013 97571 UA LONG DIP 08/29/2014 Results Test Result [...] 21:20 WET PREP RESULTS 09/02/17 2136 BY [facility] Chlamydia trachomatis DNA detection by probe and [...] group - 11/21/17 10:53 ABO+Rh group OP [facility] Transfusion band number [id number] [facility] Whole blood basic metabolic panel [...] 10:53 Serum or plasma choriogonadotropin measurement (units/volume) 72855 m[iU]/mL <5 Complete blood count (CBC) with automated white blood cell (WBC) differential - 01/24/18 03:40 Blood leukocytes automated count (number/volume) 10.2 10*3/uL 4.3-11.0 Blood erythrocytes automated count (number/volume) 4.90 10*6/uL 4.35-5.85 Venous blood hemoglobin measurement (mass/volume) 13.8 g/dL 11.5-16.0 Blood hematocrit (volume fraction) 41 % 35-52 Automated erythrocyte mean corpuscular volume 84 [foz_us] 80-99 Automated erythrocyte mean corpuscular hemoglobin (mass per erythrocyte) 28 pg 25-34 Automated erythrocyte mean corpuscular hemoglobin concentration measurement ( mass/volume) 34 g/dL 32-36 Automated erythrocyte distribution width ratio 13.4 % 10.0-14.5 Automated blood platelet count (count/volume) 276 10*3/uL 130-400 Automated blood platelet mean volume measurement 9.9 [foz_us] 7.4-10.4 Automated blood neutrophils/100 leukocytes 75 % 42-75 Automated blood lymphocytes/100 leukocytes 16 % 12-44 Blood monocytes/100 leukocytes 8 % 0-12 Automated blood eosinophils/100 leukocytes 2 % 0-10 Automated blood basophils/100 leukocytes 0 % 0-10 Blood neutrophils automated count (number/volume) 7.6 10*3 1.8-7.8 Blood lymphocytes automated count (number/volume) 1.6 10*3 1.0-4.0 Blood monocytes automated count (number/volume) 0.8 10*3 0.0-1.0 Automated eosinophil count 0.2 10*3/uL 0.0-0.3 Automated blood basophil count (count/volume) 0.0 10*3/uL 0.0-0.1 Complete urinalysis with reflex to culture - 01/24/18 03:40 Urine color determination YELLOW NRG Urine clarity determination SLIGHTLY CLOUDY NRG Urine pH measurement by test strip 7 5-9 Specific gravity of urine by test strip 1.015 1.016- 1.022 Urine protein assay by test strip, semi-quantitative NEGATIVE NEGATIVE Urine glucose detection by automated test strip NEGATIVE NEGATIVE Erythrocytes detection in urine sediment by light microscopy 4+ NEGATIVE Urine ketones detection by automated test strip NEGATIVE NEGATIVE Urine nitrite detection by test strip NEGATIVE NEGATIVE Urine total bilirubin detection by test strip NEGATIVE NEGATIVE Urine urobilinogen measurement by automated test strip (mass/volume) NORMAL NORMAL Urine leukocyte esterase detection by dipstick NEGATIVE NEGATIVE Automated urine sediment erythrocyte count by microscopy (number/high power field) [HPF] NRG Automated urine sediment leukocyte count by microscopy (number/high power field ) NONE NRG Bacteria detection in urine sediment by light microscopy NEGATIVE NRG Squamous epithelial cells detection in urine sediment by light microscopy 0-2 NRG Crystals detection in urine sediment by light microscopy PRESENT NRG Casts detection in urine sediment by light microscopy NONE NRG Mucus detection in urine sediment by light microscopy NEGATIVE NRG Complete urinalysis with reflex to culture NO NRG Amorphous sediment detection in urine sediment by light microscopy FEW SULAIMAN PHOSPHATE NR Comprehensive metabolic panel - 01/24/18 03:40 Serum or plasma sodium measurement (moles/volume) 138 mmol/L 135-145 Serum or plasma potassium measurement (moles/volume) 3.6 mmol/L 3.6-5.0 Serum or plasma chloride measurement (moles/volume) 106 mmol/L 98-107 Carbon dioxide 21 mmol/L 21-32 Serum or plasma anion gap determination (moles/volume) 11 mmol/L 5-14 Serum or plasma urea nitrogen measurement (mass/volume) 6 mg/dL 7-18 Serum or plasma creatinine measurement (mass/volume) 0.61 mg/dL 0.60-1.30 Serum or plasma urea nitrogen/creatinine mass ratio 10 NRG Serum or plasma creatinine measurement with calculation of estimated glomerular filtration rate > NRG Serum or plasma glucose measurement (mass/volume) 89 mg/dL 70-105 Serum or plasma calcium measurement (mass/volume) 10.0 mg/dL 8.5-10.1 Serum or plasma total bilirubin measurement (mass/volume) 0.3 mg/dL 0.1-1.0 Serum or plasma alkaline phosphatase measurement (enzymatic activity/volume) 49 U/L 40-136 Serum or plasma aspartate aminotransferase measurement (enzymatic activity/ volume) 13 U/L 5-34 Serum or plasma alanine aminotransferase measurement (enzymatic activity/volume ) 12 U/L 0-55 Serum or plasma protein measurement (mass/volume) 6.8 g/dL 6.4-8.2 Serum or plasma albumin measurement (mass/volume) 3.9 g/dL 3.2-4.5 CALCIUM CORRECTED 10.1 mg/dL 8.5-10.1 Serum or plasma choriogonadotropin measurement (units/volume) - 01/24/18 03:40 Serum or plasma choriogonadotropin measurement (units/volume) 99719 m[iU]/mL <5 Encounters ACCT No. Visit Date/Time Discharge Status Pt. Type Provider Facility Loc./Unit Complaint [id number] 08/29/2014 13:57:00 08/29/2014 23:59:59 CLS Outpatient SAMEERA ANNE APRN Janelle [id number] 01/17/2014 11:04:00 01/17/2014 23:59:59 CLS Outpatient ADRIANNA CISNEROS APRN Yesi [id number] 11/07/2013 10:22:00 11/07/2013 23:59:59 CLS Outpatient ADRIANNA CISNEROS APRN Yesi [id number] 05/24/2013 13:10:00 05/24/2013 23:59:59 CLS Outpatient ADRIANNA CISNEROS APRN Yesi [id number] 03/15/2013 10:45:00 03/15/2013 23:59:59 CLS Outpatient ADRIANNA CISNEROS APRN A [id number] 03/01/2013 11:01:00 03/01/2013 23:59:59 CLS Outpatient ADRIANNA CISNEROS APRN [id number] 08/11/2012 14:41:00 08/11/2012 23:59:59 CLS Outpatient ADRIANNA CISNEROS APRN Yesi [id number] 08/11/2012 14:41:00 08/11/2012 23:59:59 CLS Outpatient [id number] 06/09/2012 13:26:00 06/09/2012 23:59:59 CLS Outpatient [id number] 05/26/2012 12:07:00 05/26/2012 23:59:59 CLS Outpatient [id number] 04/21/2012 09:03:00 04/21/2012 23:59:59 CLS Outpatient [id number] 04/14/2012 00:00:00 04/14/2012 23:59:59 CLS Outpatient [id number] 09/01/2012 14:15:00 Document Registration [id number] 05/16/2012 12:11:14 RECURRING [id number] 03/08/2016 07:05:00 Document Registration [id number] 02/18/2018 09:56:00 02/18/2018 23:59:59 CLS Outpatient DELORES YOUNG DO S [facility] RAD [id number] 01/24/2018 03:14:00 01/24/2018 04:56:00 DIS Emergency SARAH GIANG, RIO Chang [facility] ER SEVERE CRAMPING, PELVIC PAIN,16 WKS PREG [id number] 11/21/2017 10:13:00 11/21/2017 12:58:00 DIS Emergency MARTI GIANG, PAOLA S [facility] ER 7 WKS ,CRAMPING [id number] 11/01/2017 20:03:00 11/01/2017 20:21:00 DIS Emergency MARIA EUGENIA DOSHI DO [facility] ER POSITIVE TEST [id number] 09/02/2017 20:25:00 09/02/2017 22:52:00 DIS Emergency SIDDHARTH GIANG, JONATHAN Valentine [facility] ER SHARP ABD PAINS [id number] 09/03/2016 13:00:00 09/03/2016 23:59:59 CLS Outpatient CARLIE HURLEY APRN [facility] RAD N92.6 [id number] 12/08/2012 07:20:00 12/08/2012 13:00:00 DIS Outpatient [id number] 12/05/2012 15:12:00 12/05/2012 23:59:59 CLS Outpatient [id number] 03/14/2018 18:58:00 ACT Emergency MARIA EUGENIA DOSHI DO [facility] ER 23 WKS/CP/SOB/CRAMPING [id number] 10/22/2017 08:20:00 10/22/2017 23:59:59 CLS Outpatient MARGARITA GIL [facility] [place] [id number] 10/22/2017 08:20:00 Document Registration [id number] 07/21/2017 11:20:00 Document Registration [id number] 04/26/2017 16:35:00 Document Registration
[2018-03-14] MEDS ORDERED: LACTATED RINGERS 1,000 ML IV ONE (19:11)
--- NOTE | 2018-03-14 19:20 | ED General ---
General Stated Complaint: 23 WKS/CP/SOB/CRAMPING Source of Information: Patient History of Present Illness Date Seen by Provider: Mar 14, 2018 Time Seen by Provider: 19:05 Initial Comments PT ARRIVES VIA POV FROM HOME MULTIPLE COMPLAINTS PT STATES SHE IS HAVING CHEST PAIN AND FEELS A LITTLE SHORT OF BREATH STATES SYMPTOMS BEGAN SOMETIME YESTERDAY STATES PAIN STARTED IN IN RIGHT UPPER CHEST YESTERDAY, THEN TODAY IT MOVED OVER TO HER LEFT UPPER CHEST AFTER SHE FINISHED EATING AND STARTED TO SLOUCH. STATES SHE TRIED TO RELAX AND LAY DOWN BUT IT DID NOT GET BETTER HAS NOT TAKEN ANYTHING FOR PAIN PT STATES SHE IS 21 WEEKS, 4 DAYS PT IS AB 0 NO PROBLEMS WITH THIS SAW DR. YOUNG 02/18 AND NEXT APPOINTMENT IS IN 3 WEEKS HAS HAD SOME MILD LOWER ABDOMINAL CRAMPING TODAY STATES SINCE BECOMING , SHE SOMETIMES WAKES UP AT NIGHT "GASPING FOR AIR " BUT IT IS FINE SOON SHE WAKES UP. HAS NOT SOUGHT CARE FOR THIS ISSUE. NO NAUSEA/VOMITING NO VAGINAL BLEEDING OR DISCHARGE NO FEVER OR RECENT ILLNESS. NO COUGH NO URINARY SYMPTOMS NO BACK PAIN STATES SHE CALLED DR. YOUNG'S OFFICE TODAY AND THEY TOLD HER TO JUST LAY DOWN AND REST OB: DR. YOUNG Allergies and Home Medications Allergies Uncoded Allergies: TAPE (Allergy, Unknown, 11/21/17) Home Medications Azithromycin 200 Mg/5 Ml Susp.recon, 1 TSP PO DAILY, (Reported) 1 TSP EVERY DAY FOR 1 WEEK Cephalexin 500 Mg Tablet, 500 MG PO BID Prescribed by: RIO SMITH on 01/24/18447 Hydrocodone Bit/Acetaminophen 480 Ml Solution, 2-3 TSP PO Q4HR PRN, (Reported) Nitrofurantoin Monohyd/M-Cryst 100 Mg Capsule, 100 MG PO BID Prescribed by: MARIA EUGENIA DOSHI on 03/14/181950 Ondansetron 4 Mg Tab.rapdis, 4 MG PO Q6H PRN for NAUSEA/VOMITING Prescribed by: RIO SMITH on 01/24/18447 Tamsulosin HCl 0.4 Mg Cap, 0.4 MG PO HS Prescribed by: RIO SMITH on 01/24/18447 Patient Home Medication List Home Medication List Reviewed: Yes Review of Systems Review of Systems Constitutional: no symptoms reported EENTM: no symptoms reported Respiratory: see HPI Cardiovascular: see HPI Gastrointestinal: see HPI Genitourinary: see HPI; No dysuria : Yes Musculoskeletal: no symptoms reported Skin: no symptoms reported Psychiatric/Neurological: No Symptoms Reported Past Tdzpkui-Ilband-Ecvemc Hx Patient Social History Alcohol Use: Denies Use Recreational Drug Use: No Smoking Status: Never a Smoker Recent Foreign Travel: No Contact w/Someone Who Travel: No Recent Hopitalizations: No Immunizations Up To Date PED Vaccines UTD: Yes Seasonal Allergies Seasonal Allergies: No Past Medical History Surgeries: Yes Tonsillectomy Respiratory: No Cardiac: No Neurological: No : Yes Hx : 1 Hx Para: 0 Hx Total # of Abortions (Sp): 0 Reproductive Disorders: No Female Reproductive Disorders: Denies Sexually Transmitted Disease: No Genitourinary: No Gastrointestinal: No Musculoskeletal: No Endocrine: No HEENT: No Cancer: No Psychosocial: No Integumentary: No Blood Disorders: No Family Medical History No Pertinent Family Hx Physical Exam Vital Signs Vital Signs - First Documented 03/14/18 19:00 Temp 98.5 Pulse 87 Resp 16 B/P (MAP) 129/78 (95) Pulse Ox 99 O2 Delivery Room Air Capillary Refill : Height, Weight, BMI Height: 5'8.00" Weight: 180lbs. oz. 81.899761lt; 21.09 BMI Method:Estimated General Appearance: No Apparent Distress, WD/WN, Other (DOES NOT APPEAR TO BE IN ANY DISCOMFORT OR DISTRESS. TEXTING/PLAYING ON PHONE, SMILING, LAUGHING WITH MALE IN ROOM .) HEENT: PERRL/EOMI Neck: Full Range of Motion, Normal Inspection, Non Tender, Supple Respiratory: Normal Breath Sounds, No Accessory Muscle Use, No Respiratory Distress, Other (DIFFUSE ANTERIOR CHEST WALL TENDERNESS--PALPATION DRAMATICALLY REPRODUCES PAIN ) Cardiovascular: Regular Rate, Rhythm, No Edema, No JVD, No Murmur, Normal Peripheral Pulses Gastrointestinal: Normal Bowel Sounds, No Pulsatile Mass, Soft, Tenderness ( MILD SUPRAPUBIC TENDERNESS. ), Other (FUNDUS IS JUST ABOVE UMBILICUS AND IS NON- TENDER) Back: Normal Inspection, No CVA Tenderness Extremity: Normal Capillary Refill, Normal Inspection, Normal Range of Motion, Non Tender, No Calf Tenderness, No Pedal Edema Neurologic/Psychiatric: Alert, Oriented x3, No Motor/Sensory Deficits, Normal Mood/Affect, traffic rate analyst II-XII Norm as Tested Skin: Normal Color, Warm/Dry Progress/Results/Core Measures Suspected Sepsis SIRS Temperature: Pulse: Respiratory Rate: Laboratory Tests 03/14/18 19:10: White Blood Count 11.0 Blood Pressure / Mean: Laboratory Tests 03/14/18 19:10: Creatinine 0.62, INR Comment 1.0, Platelet Count 277, Total Bilirubin 0.3 Results/Orders Lab Results Laboratory Tests Test 03/14/18 19:10 03/14/18 19:15 Range/Units White Blood Count 11.0 4.3-11.0 10^3/uL Red Blood Count 4.63 4.35-5.85 10^6/uL Hemoglobin 12.7 11.5-16.0 G/DL Hematocrit 39 35-52 % Mean Corpuscular Volume 84 80-99 FL Mean Corpuscular Hemoglobin 27 25-34 PG Mean Corpuscular Hemoglobin Concent 33 32-36 G/DL Red Cell Distribution Width 13.8 10.0-14.5 % Platelet Count 277 130-400 10^3/uL Mean Platelet Volume 9.5 7.4-10.4 FL Neutrophils (%) (Auto) 77 H 42-75 % Lymphocytes (%) (Auto) 14 12-44 % Monocytes (%) (Auto) 8 0-12 % Eosinophils (%) (Auto) 2 0-10 % Basophils (%) (Auto) 0 0-10 % Neutrophils # (Auto) 8.4 H 1.8-7.8 X 10^3 Lymphocytes # (Auto) 1.5 1.0-4.0 X 10^3 Monocytes # (Auto) 0.8 0.0-1.0 X 10^3 Eosinophils # (Auto) 0.2 0.0-0.3 10^3/uL Basophils # (Auto) 0.0 0.0-0.1 10^3/uL Prothrombin Time 13.4 12.2-14.7 SEC INR Comment 1.0 0.8-1.4 Activated Partial Thromboplast Time 26 24-35 SEC Sodium Level 138 135-145 MMOL/L Potassium Level 3.5 L 3.6-5.0 MMOL/L Chloride Level 107 98-107 MMOL/L Carbon Dioxide Level 18 L 21-32 MMOL/L Anion Gap 13 5-14 MMOL/L Blood Urea Nitrogen 5 L 7-18 MG/DL Creatinine 0.62 0.60-1.30 MG/DL Estimat Glomerular Filtration Rate > 60 BUN/Creatinine Ratio 8 Glucose Level 81 70-105 MG/DL Calcium Level 9.8 8.5-10.1 MG/DL Corrected Calcium 10.1 8.5-10.1 MG/DL Magnesium Level 1.9 1.8-2.4 MG/DL Total Bilirubin 0.3 0.1-1.0 MG/DL Aspartate Amino Transf (AST/SGOT) 11 5-34 U/L Alanine Aminotransferase (ALT/SGPT) 13 0-55 U/L Alkaline Phosphatase 62 40-136 U/L Troponin I < 0.30 <0.30 NG/ML B-Type Natriuretic Peptide 18.2 <100.0 PG/ML Total Protein 6.8 6.4-8.2 GM/DL Albumin 3.6 3.2-4.5 GM/DL Amylase Level 80 25-125 U/L Lipase 23 8-78 U/L Human Chorionic Gonadotropin, Quant [id number] H <5 MIU/ML Urine Color YELLOW Urine Clarity CLEAR Urine pH 7 5-9 Urine Specific [place] 1.015 L 1.016-1.022 Urine Protein NEGATIVE NEGATIVE Urine Glucose (UA) NEGATIVE NEGATIVE Urine Ketones NEGATIVE NEGATIVE Urine Nitrite NEGATIVE NEGATIVE Urine Bilirubin NEGATIVE NEGATIVE Urine Urobilinogen NORMAL NORMAL MG/DL Urine Leukocyte Esterase 2+ H NEGATIVE Urine RBC (Auto) NEGATIVE NEGATIVE Urine RBC NONE /HPF Urine WBC 10-25 H /HPF Urine Squamous Epithelial Cells 10-25 H /HPF Urine Crystals NONE /LPF Urine Bacteria MODERATE H /HPF Urine Casts NONE /LPF Urine Mucus MODERATE H /LPF Urine Culture Indicated YES Urine Opiates Screen NEGATIVE NEGATIVE Urine Oxycodone Screen NEGATIVE NEGATIVE Urine Methadone Screen NEGATIVE NEGATIVE Urine Propoxyphene Screen NEGATIVE NEGATIVE Urine Barbiturates Screen NEGATIVE NEGATIVE Ur Tricyclic Antidepressants Screen NEGATIVE NEGATIVE Urine Phencyclidine Screen NEGATIVE NEGATIVE Urine Amphetamines Screen NEGATIVE NEGATIVE Urine Methamphetamines Screen NEGATIVE NEGATIVE Urine Benzodiazepines Screen NEGATIVE NEGATIVE Urine Cocaine Screen NEGATIVE NEGATIVE Urine Cannabinoids Screen NEGATIVE NEGATIVE My Orders Orders - MARIA EUGENIA DOSHI DO Saline Lock/Iv-Start (03/14/18 19:11) Ekg Tracing (03/14/18 19:11) Heart Tones (03/14/18 19:11) Monitor-Rhythm Ecg Trace Only (03/14/18 19:11) Amylase (11/5/18 19:11) BNP (03/14/18 19:11) Cbc With Automated Diff (03/14/18 19:11) Comprehensive Metabolic Panel (03/14/18 19:11) Drug Screen Stat (Urine) (03/14/18 19:11) Hcg,Quantitative (03/14/18 19:11) Lipase (03/14/18 19:11) Magnesium (03/14/18 19:11) Protime With Inr (03/14/18 19:11) Partial Thromboplastin Time (03/14/18 19:11) Troponin I (03/14/18 19:11) Ua Culture If Indicated (03/14/18 19:11) Chest 1 View, Ap/Pa Only (03/14/18 19:11) Saline Lock/Iv-Start (03/14/18 19:11) Lactated Ringers (Lr 1000 Ml Iv Solution (03/14/18 19:11) Urine Culture (03/14/18 19:15) Medications Given in ED Current Medications Medications Dose Ordered Sig/Anatoliy Route Start Time Stop Time Status Last Admin Dose Admin Lactated Ringer's 1,000 ml @ 0 mls/hr Q0M ONCE IV 03/14/18 19:11 03/14/18 19:13 DC 03/14/18 19:24 0 MLS/HR Vital Signs/I&O 03/14/18 03/14/18 19:00 19:00 Temp 98.5 Pulse 87 Resp 16 B/P (MAP) 129/78 (95) Pulse Ox 99 O2 Delivery Room Air Room Air Capillary Refill : Progress Note : Progress Note FHR 150'S ECG Initial ECG Impression Date: Mar 14, 2018 Initial ECG Impression Time: 19:18 Initial ECG Rate: 87 Initial ECG Rhythm: Normal Sinus Initial ECG Impression: Normal Initial ECG Comparisson: No Previous ECG Available Diagnostic Imaging Comments CXR--NO ACUTE PROCESS, PER RADIOLOGIST REPORT @ 2001 Reviewed: Reviewed by Me Departure Impression Primary Impression: Chest wall pain Additional Impressions: UTI (urinary tract infection) 23 weeks gestation of Disposition: 01 HOME, SELF-CARE Condition: Stable Departure-Patient Inst. Referrals: DELORES YOUNG DO (PCP) Primary Care Physician [facility] (Family) Primary Care Physician Patient Instructions: Avoiding Infections in , Chest Pain That Is Not Caused by the Heart (DC), Costochondritis (DC), How to Adapt to Physical Changes During , Urinary Tract Infection, Adult (DC) Add. Discharge Instructions: LOTS OF CLEAR LIQUIDS TYLENOL 1 GRAM 4 TIMES A DAY FOR PAIN FOLLOW UP WITH DR. YOUNG THIS WEEK FOR FURTHER CARE Scripts Nitrofurantoin Monohyd/M-Cryst (Macrobid 100 mg Capsule) 100 Mg Capsule 100 MG PO BID, #20 CAP Prov: MARIA EUGENIA DOSHI DO 03/14/18 MARIA EUGENIA DOSHI DO Mar 14, 2018 19:19
[2018-03-14 19:21] LABS: BASOPHILS % (AUTO) 0 % (0-10); EOSINOPHILS # (AUTO) 0.2 10^3/uL (0.0-0.3); EOSINOPHILS % (AUTO) 2 % (0-10); HEMATOCRIT 39 % (35-52); HEMOGLOBIN 12.7 G/DL (11.5-16.0); LYMPHOCYTES # (AUTO) 1.5 X 10^3 (1.0-4.0); LYMPHOCYTES % (AUTO) 14 % (12-44); MEAN CORPUSCULAR HEMOGLOBIN 27 PG (25-34); MEAN CORPUSCULAR HGB CONC 33 G/DL (32-36); MEAN CORPUSCULAR VOLUME 84 FL (80-99); MEAN PLATELET VOLUME 9.5 FL (7.4-10.4); MONOCYTES # (AUTO) 0.8 X 10^3 (0.0-1.0); MONOCYTES % (AUTO) 8 % (0-12); NEUTROPHILS # (AUTO) 8.4 X 10^3 (1.8-7.8); NEUTROPHILS % (AUTO) 77 % (42-75); PLATELET COUNT 277 10^3/uL (130-400); RED BLOOD COUNT 4.63 10^6/uL (4.35-5.85); RED CELL DISTRIBUTION WIDTH 13.8 % (10.0-14.5)
[2018-03-14 19:21] LABS: BILIRUBIN,URINE NEGATIVE (NEGATIVE); CLARITY,URINE CLEAR; COLOR,URINE YELLOW; GLUCOSE, URINE (UA) NEGATIVE (NEGATIVE); KETONES,URINE NEGATIVE (NEGATIVE); LEUKOCYTE ESTERASE ,URINE 2+ (NEGATIVE); NITRITE,URINE NEGATIVE (NEGATIVE); PH,URINE 7 (5-9); PROTEIN,URINE NEGATIVE (NEGATIVE); UROBILINOGEN,URINE NORMAL (NORMAL)
[2018-03-14 19:37] LABS: PROTHROMBIN TIME PATIENT 13.4 SEC (12.2-14.7)
[2018-03-14 19:39] LABS: BACTERIA,URINE MODERATE /HPF
[2018-03-14 19:41] LABS: AMPHETAMINE SCREEN, URINE NEGATIVE (NEGATIVE); BARBITURATE SCREEN URINE NEGATIVE (NEGATIVE); BENZODIAZEPINES SCREEN URINE NEGATIVE (NEGATIVE); CANNABINOID SCREEN, URINE NEGATIVE (NEGATIVE); COCAINE SCREEN URINE NEGATIVE (NEGATIVE); METHADONE STAT NEGATIVE (NEGATIVE); METHAMPHETAMINE SCREEN URINE S NEGATIVE (NEGATIVE); OPIATE SCREEN URINE NEGATIVE (NEGATIVE); OXYCODONE STAT NEGATIVE (NEGATIVE); PROPOXYPHENE STAT NEGATIVE (NEGATIVE); TRICYCLIC ANTIDEPRESSANTS SCRE NEGATIVE (NEGATIVE)
[2018-03-14 19:44] LABS: ALANINE AMINOTRANSFERASE 13 U/L (0-55); ALBUMIN 3.6 GM/DL (3.2-4.5); ALKALINE PHOSPHATASE 62 U/L (40-136); AMYLASE 80 U/L (25-125); BILIRUBIN,TOTAL 0.3 MG/DL (0.1-1.0); BUN/CREATININE RATIO 8; CALCIUM 9.8 MG/DL (8.5-10.1); CARBON DIOXIDE 18 MMOL/L (21-32); CHLORIDE 107 MMOL/L (98-107); CREATININE SERUM 0.62 MG/DL (0.60-1.30); GFR ESTIMATED > 60; GLUCOSE 81 MG/DL (70-105); LIPASE 23 U/L (8-78); MAGNESIUM 1.9 MG/DL (1.8-2.4); POTASSIUM 3.5 MMOL/L (3.6-5.0); SODIUM 138 MMOL/L (135-145); TOTAL PROTEIN 6.8 GM/DL (6.4-8.2)
[2018-03-14] MEDS ORDERED: NITR-65 PO (19:51)
--- NOTE | 2018-03-14 19:54 | Diagnostic Imaging Report ---
INDICATION: Chest pain during . Portable upright AP view of the chest is obtained. COMPARISON: No previous study is available for comparison at this time. FINDINGS: Heart size and pulmonary vasculature are within normal limits, and the lungs are clear, bilaterally. IMPRESSION: Unremarkable chest. Dictated by: Dictated on workstation # [id number]
[2018-03-14] MEDS ORDERED: RX-NITROFURANTOIN 100 MG (MACROBID) CAP PPK#2 PO STA (20:02)
[2018-03-14] MEDS ORDERED: RX-NITROFURANTOIN 100 MG (MACROBID) CAP PPK#2 PO ONE (20:05)
[2018-03-14 20:28] VITALS: BP 113/72
== END 2018-03-14 20:26 | disposition home or self-care (01) ==
LOC: EDUNIT# 18:56 → ER 18:58
DX: O23.42 Unspecified infection of urinary tract in pregnancy, second trimester (principal); O26.892 Other specified pregnancy related conditions, second trimester; R07.89 Other chest pain; Z3A.23 23 weeks gestation of pregnancy; Z88.8 Allergy status to other drugs, medicaments and biological substances; Z90.89 Acquired absence of other organs
CPT/HCPCS: 36415; 71045; 80053; 80306; 81000; 82150; 83690; 83735; 83880; 84484; 84702; 85025; 85610; 85730; 87088; 93005; 93041; 96360

== ENCOUNTER 2018-06-02 06:01 | Outpatient (CLI) | payer MEDICAID ==
[~2018-06-02] VITALS: Ht 165.1 cm; Wt 102.3 kg
[~2018-06-02 06:01] MED LIST changes: +NITR-65 PO
--- NOTE | 2018-06-02 06:15 | NUR ---
AGNIESZKA LOBATO presented to unit via W/C from ED, accompanied by SO, with c/o LEFT SIDE PAIN RADIATING TO STOMACH,SHOOTING. AGNIESZKA LOBATO weighed, gowned, voided, and to bed. EFHM and TOCO applied, VS taken. AGNIESZKA LOBATO oriented to bed controls, call light, TV, heat, and A/C controls.
[2018-06-02] MEDS ORDERED: PREN1TAB79 PO (06:16)
[2018-06-02 06:20] VITALS: BP 131/88
--- NOTE | 2018-06-02 06:23 | NUR ---
Pt. states that she needs to get up and use the restroom. Clean catch cup given to pt and instructions given. Pt states that she needs to have a BM also at this time.
[2018-06-02 06:55] LABS: BILIRUBIN,URINE NEGATIVE (NEGATIVE); CLARITY,URINE CLEAR; COLOR,URINE YELLOW; GLUCOSE, URINE (UA) NEGATIVE (NEGATIVE); KETONES,URINE NEGATIVE (NEGATIVE); LEUKOCYTE ESTERASE ,URINE 2+ (NEGATIVE); NITRITE,URINE NEGATIVE (NEGATIVE); PH,URINE 6.5 (5-9); PROTEIN,URINE NEGATIVE (NEGATIVE); UROBILINOGEN,URINE NORMAL (NORMAL)
[2018-06-02 07:09] LABS: RBC,URINE >100 /HPF
[2018-06-02 07:10] LABS: BACTERIA,URINE FEW /HPF
--- NOTE | 2018-06-02 07:39 | NUR ---
DR. YOUNG NOTIFIED OF PT'S ARRIVAL, C/O, , 35 WKS, REVIEW OF STRIP, NO SVE, UA RESULTS, + BM AND THAT PT VOICED THAT SHE FELT BETTER AFTERWARDS. ORDERS RECEIVED FOR ABX AND DISCHARGE HOME.
[2018-06-02] MEDS ORDERED: CEPH-507 PO (07:44)
[2018-06-02] MEDS ORDERED: FLU QUADRIvalent (5+ YOA) 2018-2019 (AFLURIA) 0.5 ML IM ONE (07:45)
--- NOTE | 2018-06-02 07:50 | NUR ---
DISCHARGE PAPERS PROVIDED AND REVIEWED WITH PT, PT VERBALIZES UNDERSTANDING AND DENIES ANY QUESTIONS AT THIS TIME. PAPER SIGNED. S/O AT THE BEDSIDE.
--- NOTE | 2018-06-02 07:55 | NUR ---
PT DISCHARGED FROM [facility] TO [facility] VIA AMBULATORY IN STABLE CONDITION ACC BY S/O.
--- NOTE | 2018-06-02 07:57 | NUR ---
RX CALLED INTO [facility], VOICE MESSAGE LEFT.
== END 2018-06-02 07:55 | disposition home or self-care (01) ==
LOC: WSo 06:01 → LDRP 06:02 → WSo 07:55
PROVIDERS: ATTEND Obstetrics & Gynecology
DX: O99.89 Other specified diseases and conditions complicating pregnancy, childbirth and the puerperium (principal); R10.9 Unspecified abdominal pain; Z3A.35 35 weeks gestation of pregnancy
CPT/HCPCS: 81000; 87088; 99213

== ENCOUNTER 2018-07-03 21:58 | Outpatient (CLI) | payer MEDICAID ==
[~2018-07-03] VITALS: Ht 165.1 cm; Wt 106.8 kg
[~2018-07-03 21:58] MED LIST changes: +CEPH-507 PO; +PREN1TAB79 PO
--- NOTE | 2018-07-03 22:02 | NUR ---
AGNIESZKA LOBATO presented to unit via ambulatory from ED, accompanied by s/o, with c/o POSSIBLE LABOR. AGNIESZKA LOBATO weighed, gowned, voided, and to bed. EFHM and TOCO applied, VS taken. AGNIESZKA LOBATO oriented to bed controls, call light, TV, heat, and A/C controls.
[2018-07-03] MEDS ORDERED: FAMO-119 PO (23:22)
--- NOTE | 2018-07-03 23:30 | NUR ---
D/C instructions given & explained, pt. verbalized understanding & signed, copy of D/C instructions to pt. Pt. left [facility] ambulatory escorted by SO, to home via private vehicle.
--- NOTE | 2018-07-04 17:14 | Physician Query-Final Dx ---
BHAVNA PERDOMO 07/04/18 1713: Clinic Account Progress/Dx Physician Query: Please give diagnosis Date of Service Jul 03, 2018 at 21:58 ALDEN BLACK DO 07/15/18 1507: Clinic Account Progress/Dx DIAGNOSIS: Diagnosis Intrauterine at 39 weeks with possible rupture of membranes BHAVNA PERDOMO Jul 04, 2018 17:13 ALDEN BLACK DO Jul 15, 2018 15:07
[2018-07-06] MEDS ORDERED: ACHD5005 PO (19:45)
[2018-07-06] MEDS ORDERED: DOCU100C37 PO (19:45)
[2018-07-06] MEDS ORDERED: Benzocaine/Menthol TP (19:45)
[2018-07-06] MEDS ORDERED: IBUP-844 PO (19:45)
== END 2018-07-03 23:30 | disposition home or self-care (01) ==
LOC: LDRP 21:58 → WSo 21:58
PROVIDERS: ATTEND Obstetrics & Gynecology
DX: O99.89 Other specified diseases and conditions complicating pregnancy, childbirth and the puerperium (principal); Z3A.39 39 weeks gestation of pregnancy
CPT/HCPCS: 99213

== ENCOUNTER 2018-07-05 19:25 | Inpatient (IN) | payer MEDICAID ==
[2018-07-05] VITALS (8 sets, daily range): BP systolic 114–134; BP diastolic 65–79
[~2018-07-05] VITALS: Ht 162.6 cm; Wt 106.2 kg
[~2018-07-05 19:25] MED LIST changes: +FAMO-119 PO
--- NOTE | 2018-07-05 19:25 | NUR ---
LUIS ALFREDOAGNIESZKA B presented to unit ambulatory for induction of labor, accompanied by significant other. AGNIESZKA LOBATO weighed, gowned, voided, and to bed. Pt requested upon arrival to room to take a shower. Stated she did not have time. EFHM and TOCO applied, VS taken. AGNIESZKA LOBATO oriented to bed controls, call light, TV, heat, and A/C controls.
[2018-07-05] MEDS ORDERED: D5 LR IV SOLUTION 1,000 ML IV ONE (19:36)
[2018-07-05] MEDS ORDERED: MISOPROSTOL 100 MCG (CYTOTEC) TAB PO NR (20:00)
[2018-07-05 21:16] LABS: BASOPHILS % (AUTO) 0 % (0-10); EOSINOPHILS # (AUTO) 0.5 10^3/uL (0.0-0.3); EOSINOPHILS % (AUTO) 4 % (0-10); HEMATOCRIT 39 % (35-52); HEMOGLOBIN 12.4 G/DL (11.5-16.0); LYMPHOCYTES # (AUTO) 1.2 X 10^3 (1.0-4.0); LYMPHOCYTES % (AUTO) 10 % (12-44); MEAN CORPUSCULAR HEMOGLOBIN 25 PG (25-34); MEAN CORPUSCULAR HGB CONC 32 G/DL (32-36); MEAN CORPUSCULAR VOLUME 77 FL (80-99); MEAN PLATELET VOLUME 12.2 FL (7.4-10.4); MONOCYTES # (AUTO) 0.9 X 10^3 (0.0-1.0); MONOCYTES % (AUTO) 7 % (0-12); NEUTROPHILS # (AUTO) 9.3 X 10^3 (1.8-7.8); NEUTROPHILS % (AUTO) 78 % (42-75); PLATELET COUNT 326 10^3/uL (130-400); RED CELL DISTRIBUTION WIDTH 16.9 % (10.0-14.5); WHITE BLOOD COUNT 11.8 10^3/uL (4.3-11.0)
[2018-07-05] MEDS: D5 LR IV SOLUTION 1,000 ML IV SCH (21:30)
[2018-07-06] VITALS (60 sets, daily range): BP systolic 93–149; BP diastolic 55–96
[2018-07-06] MEDS ORDERED: LACTATED RINGERS 1,000 ML IV SCH (00:56)
[2018-07-06] MEDS: MISOPROSTOL 100 MCG (CYTOTEC) TAB PO SCH ×2 (01:10→05:00)
[2018-07-06] MEDS: D5 LR IV SOLUTION 1,000 ML IV SCH ×3 (05:03→18:41)
--- NOTE | 2018-07-06 07:00 | NUR ---
REPORT FROM Janel CADENA RN.
[2018-07-06] MEDS ORDERED: FLU QUADRIvalent (5+ YOA) 2018-2019 (AFLURIA) 0.5 ML IM ONE (07:30)
--- NOTE | 2018-07-06 08:21 | History & Physical-OB ---
OB - Chief Complaint & HPI Date/Time Date of Admission: Date of Admission: Jul 05, 2018 at 7:25 pm Date seen by a Provider: Jul 06, 2018 Time Seen by a Provider: 08:00 Chief Complaint/History OB-Reason for Admission/Chief: Induction of Labor Hx : 1 Hx Para: 0 Expected Date of Delivery: Jul 07, 2018 Gestational Age in Weeks: 39 Gestational Age in Days: 5 Indication for induction: other (social elective) Admission Nurse Assessment Rev: Yes History of Labs O pos Antibody neg RI RPR HBsAg NR HIV NR GC neg GBS neg Allergies and Home Medications Allergies Uncoded Allergies: TAPE (Allergy, Unknown, 11/21/17) Home Medications Famotidine 20 Mg Tablet, 20 MG PO BID, (Reported) Vit W-Ca,Fe,FA(<1 mg) 1 Each Tablet, 1 EACH PO DAILY, (Reported) Patient Home Medication List Home Medication List Reviewed: Yes OB - History Hx of Present Care: Yes Ultrasounds: Normal mid trimester US Obstetrical Complications: None Medical Complications: None Obstetrical History Hx : 1 Hx Para: 0 Delivery History Hx Blood Disorders: No Patient Past Medical History n/a Social History/Family History Sexually Transmitted Disease: No Alcohol Use: Denies Use Recreational Drug Use: No 2nd Hand Smoke Exposure: No OB - Admission Exam Physical Exam Vitals: Vital Signs 07/05/18 07/06/18 07/06/18 07/06/18 20:02 00:00 05:00 07:05 Temp 96.9 Pulse 91 Resp 16 B/P (MAP) 133/76 (95) Pulse Ox 97 HEENT: NCAT Heart: Rhythm Normal Lungs: Clear Abdomen: Gravid Extremities: Normal Reflexes: Normal Cervical Dilatation: 1cm Effacement: 75% Station: -1 Membranes: Intact Heart Rate: 130's Accelerations: Accelerations Present Decelerations: No Decelerations Short Term Variability: Present Carton Filler Variability: Average (6-25) Contractions on Admission: 6-10 Minutes Apart Intensity: Mild [place]roso Scoring Tool (Modified) Dilation (cm): 1-2cm (1) Effacement (%): 51-79% (2) Descent/Station: -1,0 (2) Cervix Consistency: Soft (2) Cervix Position: Anterior (2) Barroso Score: 8 Labs Laboratory Tests Test 07/05/18 20:35 Range/Units White Blood Count 11.8 H 4.3-11.0 10^3/uL Red Blood Count 5.04 4.35-5.85 10^6/uL Hemoglobin 12.4 11.5-16.0 G/DL Hematocrit 39 35-52 % Mean Corpuscular Volume 77 L 80-99 FL Mean Corpuscular Hemoglobin 25 25-34 PG Mean Corpuscular Hemoglobin Concent 32 32-36 G/DL Red Cell Distribution Width 16.9 H 10.0-14.5 % Platelet Count 326 130-400 10^3/uL Mean Platelet Volume 12.2 H 7.4-10.4 FL Neutrophils (%) (Auto) 78 H 42-75 % Lymphocytes (%) (Auto) 10 L 12-44 % Monocytes (%) (Auto) 7 0-12 % Eosinophils (%) (Auto) 4 0-10 % Basophils (%) (Auto) 0 0-10 % Neutrophils # (Auto) 9.3 H 1.8-7.8 X 10^3 Lymphocytes # (Auto) 1.2 1.0-4.0 X 10^3 Monocytes # (Auto) 0.9 0.0-1.0 X 10^3 Eosinophils # (Auto) 0.5 H 0.0-0.3 10^3/uL Basophils # (Auto) 0.0 0.0-0.1 10^3/uL OB - Assessment/Plan/Diagnosis Assessment Assessment: induction of labor Admission Dx 18 yo @ 39.5 Elective induction of labor GBS neg Admission Status: Inpatient Order (span 2 midnights) Reason for Inpatient Admission: Induction of labor at term Plan Plan: Induction Induction Method: per Misoprostol Protocol DELORES YOUNG DO Jul 06, 2018 8:21 am
[2018-07-06] MEDS ORDERED: OXYTOCIN/NORMAL SALINE 500 ML IV ONE (08:43)
[2018-07-06] MEDS ORDERED: OXYTOCIN/NORMAL SALINE 500 ML IV SCH ×2 (08:46→19:32)
[2018-07-06] MEDS ORDERED: SUFENTA 0.6MCG/ML BUPIVA 0.125 100 ML ONE (09:54)
[2018-07-06] MEDS ORDERED: fentaNYL INJECTION 100 MCG/2 ML AMP ONE (10:18)
[2018-07-06] MEDS ORDERED: BUPIVACAINE 0.25% 30 ML (SENSORCAINE) VIAL ONE (10:18)
--- NOTE | 2018-07-06 10:22 | NUR ---
CONSTANTIN FORGE HELPER WITH STUDENT FORGE HELPER here for epidural placement. Procedure explained, consent reviewed and signed by anesthesia. Questions answered to patient's satisfaction. Time out taken to verify correct patient/procedure. Patient up to side of bed, assisted into sitting position. Betadine prep done x3 and sterile drape applied. Local done, see anesthesia record. Test dose given, see anesthesia record for drug and dosage. Epidural catheter secured in place. Epidural placement complete. Assisted back into bed, monitors adjusted. Epidural dosed, see anesthesia record. Epidural of Sufenta/Bupvicaine @_12 cc/hr stated per pump. Patient tolerated procedure well.
[2018-07-06] MEDS ORDERED: LACTATED RINGERS 1,000 ML IV ONE (10:56)
[2018-07-06] MEDS ORDERED: EPIDURAL (SUFENTA 0.6MCG/ML BUPIVA 0.125%) 100 ML BAG EPI SCH (11:00)
[2018-07-06] MEDS ORDERED: CATHETER FLUSH 10 ML SYR IV PRN (11:00)
[2018-07-06] MEDS ORDERED: NALOXONE 0.4 MG/ML 1 ML (NARCAN) VIAL IV PRN (11:00)
[2018-07-06] MEDS ORDERED: LIDOCAINE/EPI 2% 1:200,00 (XYLOCAINE) 10 ML VIAL ONE (11:51)
[2018-07-06] MEDS: CATHETER FLUSH 10 ML SYR IV SCH ×2 (11:56→11:57)
--- NOTE | 2018-07-06 19:39 | OB Labor & Delivery Record ---
L&D History Date of Service Date of Service: Jul 06, 2018 History Expected Date of Delivery: Jul 07, 2018 Gestational Age in Weeks: 39 Hx : 1 Hx Para: 0 Complications Events: Routine care Operative Indications (Cesarea: N/A-Vaginal Delivery Intrapartal Events: None L&D Stage1 Stage One Onset of Labor - Date: Jul 06, 2018 Monitors and Tracing Monitor Mode: External Heart Rate: 135 Monitor Decelerations: None Station: +1 Skilled Nursing Variability: Average (6-10) Short Term Variability: Present Presentation: Vertex Vital Signs VS - Last 72 Hours, by Label 07/05/18 07/05/18 07/05/18 07/05/18 20:02 21:05 21:30 21:45 Temp 98.3 Pulse 88 75 85 87 Resp 20 B/P (MAP) 134/79 (97) 126/79 (95) 121/68 (85) 115/65 (82) Pulse Ox 97 07/05/18 07/05/18 07/05/18 07/05/18 22:00 22:30 23:00 23:30 Pulse 89 86 86 75 B/P (MAP) 122/71 (88) 118/68 (85) 116/69 (85) 114/74 (87) 07/06/18 07/06/18 07/06/18 07/06/18 00:00 00:30 01:00 01:30 Temp 96.9 Pulse 79 80 93 77 Resp 16 B/P (MAP) 119/73 (88) 116/67 (83) 106/63 (77) 121/64 (83) 07/06/18 07/06/18 07/06/18 07/06/18 02:00 03:00 04:00 05:00 Temp 96.9 Pulse 82 86 100 76 B/P (MAP) 116/70 (85) 131/80 (97) 115/87 (96) 122/77 (92) 07/06/18 07/06/18 07/06/18 07/06/18 06:00 07:05 07:30 08:00 Temp 97.9 Pulse 82 91 91 Resp 20 20 B/P (MAP) 129/80 (96) 133/76 (95) 136/84 (101) O2 Delivery Room Air Room Air 07/06/18 07/06/18 07/06/18 07/06/18 08:45 09:15 09:30 09:45 Pulse 101 102 93 Resp 20 20 20 20 B/P (MAP) 133/93 (106) 136/96 (109) 126/91 (103) O2 Delivery Room Air Room Air Room Air Room Air 07/06/18 07/06/18 07/06/18 07/06/18 10:00 10:15 10:30 10:36 Temp 98.3 Pulse 72 95 82 Resp 20 20 20 20 B/P (MAP) 140/94 (109) 139/90 (106) 128/80 (96) Pulse Ox 100 100 O2 Delivery Room Air Room Air Room Air Room Air 07/06/18 07/06/18 07/06/18 07/06/18 10:39 10:41 10:44 10:47 Pulse 96 93 88 91 Resp 20 20 20 20 B/P (MAP) 135/88 (104) 126/74 (91) 129/85 (100) 125/81 (96) Pulse Ox 100 100 100 98 O2 Delivery Room Air Room Air Room Air Room Air 07/06/18 07/06/18 07/06/18 07/06/18 10:50 10:53 11:00 11:03 Pulse 87 96 93 93 Resp 20 20 20 20 B/P (MAP) 127/86 (100) 117/81 (93) 140/74 (96) 142/73 (96) Pulse Ox 98 96 97 93 O2 Delivery Room Air Room Air Room Air Room Air 07/06/18 07/06/18 07/06/18 07/06/18 11:07 11:23 11:40 12:00 Pulse 96 101 100 90 Resp 20 20 20 20 B/P (MAP) 144/81 (102) 140/82 (101) 121/76 (91) 119/72 (88) Pulse Ox 96 98 99 98 O2 Delivery Room Air Room Air Room Air Room Air 07/06/18 07/06/18 07/06/18 07/06/18 12:15 12:30 12:45 13:00 Temp 97.9 Pulse 96 107 93 92 Resp 20 22 18 22 B/P (MAP) 149/75 (99) 138/84 (102) 129/79 (96) 129/82 (98) Pulse Ox 96 O2 Delivery Non Rebreather Non Rebreather Non Rebreather Non Rebreather O2 Flow Rate 10.00 10.00 10.00 10.00 07/06/18 07/06/18 07/06/18 07/06/18 13:15 13:30 13:45 14:00 Temp 97.9 Pulse 103 88 82 83 Resp B/P (MAP) 127/77 (94) 118/78 (91) 119/72 (88) 112/71 (85) O2 Delivery Non Rebreather Non Rebreather Non Rebreather Non Rebreather O2 Flow Rate 10.00 10.00 10.00 10.00 07/06/18 07/06/18 07/06/18 07/06/18 14:15 14:30 14:45 14:55 Pulse 89 89 91 Resp B/P (MAP) 116/74 (88) 118/79 (92) 118/79 (92) 112/74 (87) O2 Delivery Non Rebreather Non Rebreather Room Air Room Air O2 Flow Rate 10.00 10.00 07/06/18 07/06/18 07/06/18 07/06/18 15:10 15:25 15:40 15:55 Pulse 93 93 91 Resp B/P (MAP) 114/71 (85) 106/69 (81) 128/63 (84) O2 Delivery Room Air Room Air Room Air Room Air 07/06/18 07/06/18 07/06/18 07/06/18 16:00 16:10 16:25 16:35 Pulse 88 80 90 110 Resp B/P (MAP) 117/60 (79) 93/55 (68) 102/70 (81) 100/68 (79) O2 Delivery Room Air Room Air Room Air Room Air 07/06/18 07/06/18 07/06/18 07/06/18 16:50 17:05 17:15 17:30 Pulse 90 96 100 95 Resp B/P (MAP) 113/64 (80) 114/70 (85) 111/67 (82) 102/63 (76) O2 Delivery Room Air Room Air Room Air Room Air 07/06/18 07/06/18 07/06/18 07/06/18 17:45 18:00 18:15 18:30 Pulse 89 94 88 Resp 22 22 22 22 B/P (MAP) 103/63 (76) 117/73 (88) 118/69 (85) O2 Delivery Room Air Room Air Room Air Room Air Rupture of Membranes Spontaneous Ruture of Membrane: No Amniotic Membrane Rupture Time: 0800 Amniotic Membrane Fluid Desc.: Clear Vaginal Bleeding Description: Normal Show Induction/Anesthesia Epidural Cath Placement - Time: 1033 Progress/Notes Pitocin augmentation initiated early this am after AROM. She had a couple episodes of FHR decelerations and overall a dysfunctional contraction pattern, however was able to progress to complete and +2 station L&D Stage2 Stage Two Stage II Date: Jul 06, 2018 Monitors and Tracing Monitor Mode: Internal Heart Rate: 135 Monitor Decelerations: None Skilled Nursing Variability: Average (6-10) Short Term Variability: Present Position: Right Occiput Anterior Presentation: Vertex Cord Descript/Complications Cord Vessel Description: 3 Vessels Complications nuchal cord reduced x 1 Delivery Type Delivery Method: Spontaneous Vaginal Anterior Shoulder: Right Episiotomy/Perineal Laceration Laceraction(s)/Extensions: Yes Episiotomy Description: Midline, Vaginal Extension/lac, 1st degree Degree (describe repair) midline 1st degree vaginal lac repaired using 3-0 rapide vicryl suture in usual fashion Condition of Infant Delivery 1 minute Comment: 8 5 minute Comment: 9 Notes Live female infant weight 6lbs 1 oz Condition of Condition of : Living Exam: No Observed Abnormalities Resuscitation Resuscitation: N/A - Spontaneous Resp L&D Stage3 Stage Three Stage III Date: Jul 06, 2018 Pictocin Pitocin Administration mu/min: 8 Pitocin ml/hr: 8 Pitocin Administration Comment: 30 mu wide open at delivery of placenta Placenta Delivery Placenta Delivery: Spontaneous Delivery Summary Summary Estimated blood loss (mL): 300 Attending at delivery: Delores Young DO Condition of Delivery Examined: Cervix Examined, Uterus Explored Post Hemorrhage: No Condition of Mother stable Condition of (s) stable DELORES YOUNG DO Jul 06, 2018 19:39
--- NOTE | 2018-07-06 19:40 | Discharge Inst-Women's Service ---
Discharge Inst-Women's Serv Depart Medication/Instructions New, Converted or Re-Newed RX: RX on Chart Final Diagnosis PPD 2 NVD Consults/Follow Up Additional Follow Up: Yes Orders/Referrals Dr. Young in 6 weeks Activity Activity: Activity as Tolerated Driving Instructions: No Driving for 1 Week NO SMOKING: NO SMOKING Nothing Inside Vagina: No Douching, No [place], No Tampons Diet Discharge Diet: No Restrictions Symptoms to Report to : Bleeding Excessive, Pain Increased, Fever Over 101 Degrees F, Vaginal Bleeding Increase, Questions/Concerns For Any Problems or Questions: Contact Your Physician DELORES YOUNG DO Jul 06, 2018 19:40
[2018-07-06] MEDS ORDERED: MEASLES,MUMPS,RUBELLA 1 EA INJ SQ ONE (19:45)
[2018-07-06] MEDS ORDERED: WITCH HAZEL(TUCKS) 40 EA JAR TOP PRN (19:45)
[2018-07-06] MEDS ORDERED: DOCU100C37 PO (19:45)
[2018-07-06] MEDS ORDERED: IBUP-844 PO (19:45)
[2018-07-06] MEDS ORDERED: BENZOCAINE/MENTHOL (DERMOPLAST) 56 ML CAN TP PRN (19:45)
[2018-07-06] MEDS ORDERED: TETANUS,DIPTH,PERTUSS P/F (BOOSTRIX) 0.5 ML VIAL IM ONE (19:45)
[2018-07-06] MEDS ORDERED: ACHD5005 PO (19:45)
[2018-07-06] MEDS ORDERED: HYDROcodone/APAP 5 MG/325 MG (LORTAB) TAB PO PRN (19:45)
[2018-07-06] MEDS ORDERED: DIBUCAINE (NUPERCAINAL) 1% OINT 30 GM TOP PRN (19:45)
[2018-07-06] MEDS ORDERED: Benzocaine/Menthol TP (19:45)
[2018-07-06] MEDS: IBUPROFEN 600 MG (MOTRIN) TAB PO SCH (21:46)
[2018-07-06] MEDS ORDERED: CATHETER FLUSH 10 ML SYR IV SCH (22:00)
--- NOTE | 2018-07-06 23:30 | NUR ---
Patient to pp room 311 via wheelchair accompanied by s/o and . Patient to bathroom where large void achieved. [facility] instructions given to patient and performed by patient. Patient to bed via wheelchair and instructed to call for assistance when wanting to get up again. Patient oriented to room, call light and bed controls. Patient verbalized understanding of all teaching.
[2018-07-07 00:35] VITALS: BP 105/78
[2018-07-07 04:15] VITALS: BP 104/71
[2018-07-07] MEDS: IBUPROFEN 600 MG (MOTRIN) TAB PO SCH ×4 (04:18→21:30)
[2018-07-07 06:37] LABS: BASOPHILS % (AUTO) 0 % (0-10); EOSINOPHILS # (AUTO) 0.1 10^3/uL (0.0-0.3); EOSINOPHILS % (AUTO) 1 % (0-10); HEMATOCRIT 35 % (35-52); LYMPHOCYTES # (AUTO) 1.6 X 10^3 (1.0-4.0); LYMPHOCYTES % (AUTO) 9 % (12-44); MEAN CORPUSCULAR HEMOGLOBIN 24 PG (25-34); MEAN CORPUSCULAR HGB CONC 32 G/DL (32-36); MEAN CORPUSCULAR VOLUME 77 FL (80-99); MEAN PLATELET VOLUME 11.5 FL (7.4-10.4); MONOCYTES # (AUTO) 1.3 X 10^3 (0.0-1.0); MONOCYTES % (AUTO) 8 % (0-12); NEUTROPHILS # (AUTO) 13.9 X 10^3 (1.8-7.8); NEUTROPHILS % (AUTO) 82 % (42-75); PLATELET COUNT 273 10^3/uL (130-400); WHITE BLOOD COUNT 16.9 10^3/uL (4.3-11.0)
--- NOTE | 2018-07-07 07:25 | Anesthesia-Regional Post-Op ---
Regional Patient Condition Mental Status: Alert, Oriented x3 Circulation: Same as Pre-Op Headache: Absent Sensation: Full Recovery Motor Block: Absent Post Op Complications Complications None Follow Up Care/Instructions Patient Instructions None needed. Anesthesia/Patient Condition Patient is doing well, no complaints, stable vital signs, no apparent adverse anesthesia problems. No complications reported per nursing. REINALDO FINCH CRNA Jul 07, 2018 07:24
[2018-07-07 07:55] VITALS: BP 133/84
[2018-07-07] MEDS: PRENATAL VITAMIN 1 EA TAB PO SCH (08:01)
[2018-07-07] MEDS: DOCUSATE SODIUM 100 MG (COLACE) CAP PO SCH ×2 (08:01→21:30)
[2018-07-07] MEDS: FERROUS SULF 325 MG (IRON) TAB PO SCH (08:01)
--- NOTE | 2018-07-07 08:10 | NUR ---
THIS RN TO BEDSIDE, SELF INTRODUCED. PT IN BED. VS OBTAINED. INITIAL SHIFT ASSESSMENT COMPLETED; SEE INTERVENTION FOR FURTHER. MEDS GIVEN PO; SEE EMAR. IV DC'D. CATHETER TIP INTACT, SITE CLEAR. GAUZE AND BAND AID APPLIED OVER SITE. SHOWER SET UP. PT LOOKING OVER MENU. DR. CABRERA TO BEDSIDE TO ASSESS .
--- NOTE | 2018-07-07 09:01 | NUR ---
Assuming care of pt. No complaints. Eating breakfast.
--- NOTE | 2018-07-07 10:27 | Postpartum Progress Note ---
Note Note Day # 1 Subjective: Patient is without complaints. Ambulating, voiding. Tolerating a regular diet without nausea or vomiting. Normal lochia. Pain is well controlled with oral pain medications. Objective: Physical Exam: General - Alert and oriented, no apparent distress Abdomen - Soft, appropriately tender to palpation, non-distended, fundus firm at umbilicus Extremities - no edema, negative Mirtha's bilaterally Assessment: PPD 1 NVD Plan: Routine care. Encourage breast feeding. Encourage ambulation. Ferrous sulfate supplementation. Plan for discharge tomorrow Vitals - Labs Vital Signs - I&O Vital Signs Date Time Temp Pulse Resp B/P (MAP) Pulse Ox O2 Delivery O2 Flow Rate FiO2 07/07/18 07:55 97.6 90 18 133/84 (100) 99 Room Air 07/07/18 04:15 97.7 88 18 104/71 (82) 99 Room Air 07/07/18 00:35 97.7 92 18 105/78 (87) Room Air 07/06/18 20:38 92 18 130/90 (103) Room Air 07/06/18 20:07 18 131/90 (104) Room Air 07/06/18 19:52 90 18 128/81 (97) Room Air 07/06/18 19:37 100 18 127/83 (98) Room Air 07/06/18 19:35 98.6 96 18 126/70 (88) Room Air 07/06/18 18:30 22 Room Air 07/06/18 18:15 88 22 118/69 (85) Room Air 07/06/18 18:00 94 22 117/73 (88) Room Air 07/06/18 17:45 89 22 103/63 (76) Room Air 07/06/18 17:30 95 22 102/63 (76) Room Air 07/06/18 17:15 100 22 111/67 (82) Room Air 07/06/18 17:05 96 22 114/70 (85) Room Air 07/06/18 16:50 90 22 113/64 (80) Room Air 07/06/18 16:35 110 22 100/68 (79) Room Air 07/06/18 16:25 90 22 102/70 (81) Room Air 07/06/18 16:10 80 22 93/55 (68) Room Air 07/06/18 16:00 88 22 117/60 (79) Room Air 07/06/18 15:55 22 Room Air 07/06/18 15:40 91 22 128/63 (84) Room Air 07/06/18 15:25 93 22 106/69 (81) Room Air 07/06/18 15:10 93 22 114/71 (85) Room Air 07/06/18 14:55 91 22 112/74 (87) Room Air 07/06/18 14:45 89 22 118/79 (92) Room Air 07/06/18 14:30 89 22 118/79 (92) Non Rebreather 10.00 07/06/18 14:15 22 116/74 (88) Non Rebreather 10.00 07/06/18 14:00 83 22 112/71 (85) Non Rebreather 10.00 07/06/18 13:45 82 22 119/72 (88) Non Rebreather 10.00 07/06/18 13:30 97.9 88 22 118/78 (91) Non Rebreather 10.00 07/06/18 13:15 103 22 127/77 (94) Non Rebreather 10.00 07/06/18 13:00 92 22 129/82 (98) Non Rebreather 10.00 07/06/18 12:45 97.9 93 18 129/79 (96) Non Rebreather 10.00 07/06/18 12:30 107 22 138/84 (102) Non Rebreather 10.00 07/06/18 12:15 96 20 149/75 (99) 96 Non Rebreather 10.00 07/06/18 12:00 90 20 119/72 (88) 98 Room Air 07/06/18 11:40 100 20 121/76 (91) 99 Room Air 07/06/18 11:23 101 20 140/82 (101) 98 Room Air 07/06/18 11:07 96 20 144/81 (102) 96 Room Air 07/06/18 11:03 93 20 142/73 (96) 93 Room Air 07/06/18 11:00 93 20 140/74 (96) 97 Room Air 07/06/18 10:53 96 20 117/81 (93) 96 Room Air 07/06/18 10:50 87 20 127/86 (100) 98 Room Air 07/06/18 10:47 91 20 125/81 (96) 98 Room Air 07/06/18 10:44 88 20 129/85 (100) 100 Room Air 07/06/18 10:41 93 20 126/74 (91) 100 Room Air 07/06/18 10:39 96 20 135/88 (104) 100 Room Air 07/06/18 10:36 82 20 128/80 (96) 100 Room Air 07/06/18 10:30 98.3 95 20 139/90 (106) 100 Room Air I & O 07/07/18 07:00 Intake Total 4000 ml Balance 4000 ml Labs Laboratory Tests 07/07/18 06:20: White Blood Count 16.9H, Red Blood Count 4.51, Hemoglobin 11.0L, Hematocrit 35, Mean Corpuscular Volume 77L, Mean Corpuscular Hemoglobin 24L, Mean Corpuscular Hemoglobin Concent 32, Red Cell Distribution Width 17.0H, Platelet Count 273, Mean Platelet Volume 11.5H, Neutrophils (%) (Auto) 82H, Lymphocytes (%) (Auto) 9L, Monocytes (%) (Auto) 8, Eosinophils (%) (Auto) 1, Basophils (%) (Auto) 0, Neutrophils # (Auto) 13.9H, Lymphocytes # (Auto) 1.6, Monocytes # (Auto) 1.3H, Eosinophils # (Auto) 0.1, Basophils # (Auto) 0.0 DELORES YOUNG DO Jul 07, 2018 10:27
[2018-07-07 16:00] VITALS: BP 139/79
[2018-07-07 22:00] VITALS: BP 119/67
[2018-07-08 04:12] VITALS: BP 122/69
[2018-07-08] MEDS: IBUPROFEN 600 MG (MOTRIN) TAB PO SCH ×2 (04:12→10:17)
[2018-07-08] MEDS: DOCUSATE SODIUM 100 MG (COLACE) CAP PO SCH ×2 (06:43→08:44)
--- NOTE | 2018-07-08 08:18 | Postpartum Progress Note ---
Note Note Day # 2 Subjective: Patient is without complaints. Ambulating, voiding. Tolerating a regular diet without nausea or vomiting. Normal lochia. Pain is well controlled with oral pain medications. Objective: Physical Exam: General - Alert and oriented, no apparent distress Abdomen - Soft, appropriately tender to palpation, non-distended, fundus firm at umbilicus Extremities - no edema, negative Mirtha's bilaterally Assessment: PPD NVD Plan: Routine care. Encourage breast feeding. Encourage ambulation. Ferrous sulfate supplementation. Plan for discharge today Vitals - Labs Vital Signs - I&O Vital Signs Date Time Temp Pulse Resp B/P (MAP) Pulse Ox O2 Delivery O2 Flow Rate FiO2 07/08/18 04:12 97.9 104 18 122/69 (86) 98 Room Air 07/07/18 22:00 98.6 100 14 119/67 (84) 97 Room Air 07/07/18 16:00 98.4 99 14 139/79 (99) 98 Room Air 07/07/18 12:00 98.2 97 16 98 Room Air DELORES YOUNG DO Jul 08, 2018 08:18
[2018-07-08] MEDS: PRENATAL VITAMIN 1 EA TAB PO SCH (08:43)
[2018-07-08] MEDS: FERROUS SULF 325 MG (IRON) TAB PO SCH (08:44)
--- NOTE | 2018-07-08 10:45 | NUR ---
Discharge instructions verbal and written given to pt. Verbalizes understanding. See discharge form. Awaiting infant's discharge.
--- NOTE | 2018-07-08 14:37 | NUR ---
PT DISCHARGED FROM -311 TO PERSONAL [facility] VIA AMBULATORY IN STABLE CONDITION ACC BY THIS RN AND S/O. BELONGINGS IN HAND.
== END 2018-07-08 14:37 | disposition home or self-care (01) | DRG 807 ==
LOC: LDRP 19:25
PROVIDERS: ADMIT Obstetrics & Gynecology; ATTEND Obstetrics & Gynecology
PROC: 3E0DXGC Introduction of Other Therapeutic Substance into Mouth and Pharynx, External Approach (ICD-10-PCS; 2018-07-05)
PROC: 10E0XZZ Delivery of Products of Conception, External Approach (ICD-10-PCS; principal; 2018-07-06)
PROC: 0HQ9XZZ Repair Perineum Skin, External Approach (ICD-10-PCS; 2018-07-06)
PROC: 0W8NXZZ Division of Female Perineum, External Approach (ICD-10-PCS; 2018-07-06)
DX: O76 Abnormality in fetal heart rate and rhythm complicating labor and delivery (principal); O70.0 First degree perineal laceration during delivery; O69.81X0 Labor and delivery complicated by cord around neck, without compression, not applicable or unspecified; Z3A.39 39 weeks gestation of pregnancy; Z37.0 Single live birth
CPT/HCPCS: 36415; 85025; 86850; 86900; 86901; 99213

== ENCOUNTER 2018-11-29 01:14 | Emergency (ER) | payer SELFPAY ==
[~2018-11-29] VITALS: Ht 165.1 cm; Wt 90.7 kg
[~2018-11-29 01:14] MED LIST changes: +ACHD5005 PO; +Benzocaine/Menthol TP; +DOCU100C37 PO; +IBUP-844 PO
--- NOTE | 2018-11-29 01:20 | NUR ---
ppd here talking to patient.
[2018-11-29] MEDS ORDERED: TETANUS,DIPTH,PERTUSS P/F (BOOSTRIX) 0.5 ML VIAL IM ONE (02:00)
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
[2018-11-29 02:12] VITALS: BP 113/70
--- NOTE | 2018-11-29 06:51 | Diagnostic Imaging Report ---
EXAM: Right first toe radiographs. INDICATION: Right first toe trauma and pain. COMPARISON: None. FINDINGS: No fracture or malalignment. No suspicious osteoblastic or lytic lesions. No radiopaque foreign bodies. IMPRESSION: Negative right first toe radiographs. Dictated by: Dictated on workstation # [id number]
== END 2018-11-29 02:13 | disposition home or self-care (01) ==
LOC: EDUNIT# 01:14 → ER 01:16
DX: S61.011A Laceration without foreign body of right thumb without damage to nail, initial encounter (principal); S90.111A Contusion of right great toe without damage to nail, initial encounter; Z90.89 Acquired absence of other organs; Z88.8 Allergy status to other drugs, medicaments and biological substances; Y04.0XXA Assault by unarmed brawl or fight, initial encounter
CPT/HCPCS: 12001; 73660

== ENCOUNTER → 2019-06-02 | Outpatient (CLI) | payer SELFPAY ==
[~2019-06-02] MED LIST changes: -TAMS0.4C98 PO; +TMSL.4C PO
--- NOTE | 2019-06-02 18:57 | Diagnostic Imaging Report ---
INDICATION: Vaginal bleeding, first trimester . FINDINGS: No identifiable intra or extrauterine gestation is found. A very early IUP, too early to detect could not be excluded and serial beta-hCG and follow-up as indicated. No fibroid or myometrial mass. The left ovary contains a partially septated cyst measuring 1.7 cm maximal without vascularized or soft tissue component. No findings of extrauterine gestation. No free fluid. IMPRESSION: No intra or extrauterine gestation identified. This might be either very early or missed AB. Follow-up and beta-hCG as warranted. Dictated by: Dictated on workstation # [id number]
== END ==
LOC: RAD 11:57
PROVIDERS: ATTEND Nurse Practitioner Family
DX: O26.851 Spotting complicating pregnancy, first trimester (principal); Z3A.00 Weeks of gestation of pregnancy not specified
CPT/HCPCS: 76801; 76817

== ENCOUNTER → 2020-03-14 | Outpatient (CLI) | payer MEDICAID ==
[~2020-03-14] MED LIST changes: +AMOX500C2 PO
--- NOTE | 2020-03-14 13:13 | Diagnostic Imaging Report ---
INDICATION: survey. TECHNIQUE: Multiple real-time grayscale images were obtained over the gravid uterus. COMPARISON: None FINDINGS: There is a single live fetus in a breech presentation. heart rate was recorded at 144 BPM. Placenta is posterior. Amniotic fluid index is 14 cm. Cervical length is 4.3 cm. kidneys, bladder, and stomach are unremarkable. brain is unremarkable. There is a four-chamber heart. There is a three-vessel cord with normal insertion. spine is unremarkable. Biometrical measurements are as follows: Biparietal 5.13 cm, age 21 weeks 4 days. Head circumference 19.03 cm, age 21 weeks 3 days. Abdominal circumference 16.48 cm, age 21 weeks 4 days. Femur length 3.71 cm, age 21 weeks 6 days. Sonographic estimate age: 21 weeks 5 days. Sonographic estimated date of delivery: 07/20/2020. Estimated Weight: 438 gm (+/- 64 gm). LMP percentile: 96%. heart rate: 144 beats per minute. number: 1 of 1. IMPRESSION: Single live IUP of 21 weeks 5 days gestational age. Estimated date of confinement sonographically is 07/20/2020. Dictated by: Dictated on workstation # [id number]
== END ==
LOC: RAD 10:00
PROVIDERS: ATTEND Obstetrics & Gynecology
DX: Z34.92 Encounter for supervision of normal pregnancy, unspecified, second trimester (principal); Z3A.21 21 weeks gestation of pregnancy
CPT/HCPCS: 76805

== ENCOUNTER 2020-04-23 16:39 | Emergency (ER) | payer MEDICAID ==
[~2020-04-23] VITALS: Ht 160 cm; Wt 97.0 kg
[2020-04-23 17:10] LABS: BILIRUBIN,URINE NEGATIVE (NEGATIVE); CLARITY,URINE CLEAR; COLOR,URINE YELLOW; GLUCOSE, URINE (UA) NEGATIVE (NEGATIVE); KETONES,URINE NEGATIVE (NEGATIVE); LEUKOCYTE ESTERASE ,URINE TRACE (NEGATIVE); NITRITE,URINE NEGATIVE (NEGATIVE); PROTEIN,URINE NEGATIVE (NEGATIVE)
[2020-04-23 17:17] LABS: BACTERIA,URINE NEGATIVE /HPF
[2020-04-23 17:34] LABS: BASOPHILS % (AUTO) 0 % (0-10); EOSINOPHILS # (AUTO) 0.1 10^3/uL (0.0-0.3); EOSINOPHILS % (AUTO) 1 % (0-10); HEMATOCRIT 39 % (35-52); HEMOGLOBIN 12.3 g/dL (11.5-16.0); LYMPHOCYTES # (AUTO) 1.4 10^3/uL (1.0-4.0); LYMPHOCYTES % (AUTO) 13 % (12-44); MEAN CORPUSCULAR HEMOGLOBIN 27 pg (25-34); MEAN CORPUSCULAR HGB CONC 32 g/dL (32-36); MEAN CORPUSCULAR VOLUME 85 fL (80-99); MEAN PLATELET VOLUME 11.1 fL (9.0-12.2); MONOCYTES # (AUTO) 0.8 10^3/uL (0.0-1.0); MONOCYTES % (AUTO) 8 % (0-12); NEUTROPHILS # (AUTO) 8.3 10^3/uL (1.8-7.8); NEUTROPHILS % (AUTO) 76 % (42-75); PLATELET COUNT 228 10^3/uL (130-400); WHITE BLOOD COUNT 10.9 10^3/uL (4.3-11.0)
[2020-04-23 17:49] LABS: ALBUMIN 3.4 GM/DL (3.2-4.5); CHLORIDE 106 MMOL/L (98-107); POTASSIUM 4.3 MMOL/L (3.6-5.0); SODIUM 135 MMOL/L (135-145)
[2020-04-23 17:50] LABS: CALCIUM 8.7 MG/DL (8.5-10.1)
[2020-04-23 17:52] LABS: GLUCOSE 101 MG/DL (70-105); TOTAL PROTEIN 6.9 GM/DL (6.4-8.2)
[2020-04-23 17:53] LABS: BILIRUBIN,TOTAL 0.3 MG/DL (0.1-1.0); CARBON DIOXIDE 19 MMOL/L (21-32)
[2020-04-23 17:55] LABS: ALKALINE PHOSPHATASE 67 U/L (40-136); GFR ESTIMATED > 60
[2020-04-23 17:56] LABS: BUN/CREATININE RATIO 12
[2020-04-23 17:58] LABS: ALANINE AMINOTRANSFERASE 12 U/L (0-55)
[2020-04-23 17:59] LABS: URIC ACID 3.3 MG/DL (2.6-7.2)
[2020-04-23] MEDS ORDERED: LACTATED RINGERS 1,000 ML IV ONE (18:00)
[2020-04-23] MEDS ORDERED: METOCLOPRAMIDE INJ 10 MG/2 ML (REGLAN) IVP ONE (18:00)
[2020-04-23] MEDS ORDERED: diphenhydrAMINE 50 MG/ML INJ (BENADRYL) IVP ONE (18:00)
--- NOTE | 2020-04-23 18:25 | NUR ---
PT WANTING TO LEAVE BEFORE FLUIDS ARE DONE. ET STATES SHE DOES NOT LIKE HOSPITALS.
[2020-04-23] MEDS ORDERED: METO-310 PO (18:41)
--- NOTE | 2020-04-23 18:43 | ED Headache ---
General Chief Complaint: Head/Cervical Problems Stated Complaint: HEADACHE Nursing Triage Note: ARRIVED VIA AMB TO FT2 WITH COMPLAINTS OF ON AND OFF MIGRAINES X3 WEEKS. DENIES MIGRAINE AT THIS MOMENTS. STATES SHE IS STARTING TO HAVE CHEST PAIN WITH HER MIGRAINES. STATES SHE IS 26 WEEKS GESTATION. Nursing Sepsis Screen: No Definite Risk Source: patient Exam Limitations: no limitations History of Present Illness Date Seen by Provider: Apr 23, 2020 Time Seen by Provider: 16:55 Initial Comments This 20-year-old young lady at about 26 weeks gestational age presents to the emergency room with complaints of headaches for the past 3 weeks. She is not accustomed to having frequent headaches when not . She describes associated symptoms of a generalized blurry vision and a discomfort in her chest only when she has the headaches. She complains of the chest discomfort and headache now. She has tried Tylenol but that is generally not very effective. Blood pressure is normal. She has minimal lower extremity swelling associated with the . No history of preeclampsia. Dr. Jara is her obstetrical provider. Allergies and Home Medications Allergies Uncoded Allergies: TAPE (Allergy, Unknown, 11/21/17) Home Medications Amoxicillin 500 Mg Capsule, 500 MG PO TID Prescribed by: HIGINIO ROMERO on 01/12/20 2031 Hydrocodone/Acetaminophen 1 Each Tablet, 1 EACH PO Q4H PRN for PAIN-MODERATE (5- 7) Prescribed by: JASON CHEN on 01/13/20 0848 Metoclopramide HCl 10 Mg Tablet, 10 MG PO BID Prescribed by: JASON CHEN on 04/23/20 1841 Patient Home Medication List Home Medication List Reviewed: Yes Review of Systems Review of Systems Constitutional: no symptoms reported Eyes: No Symptoms Reported Ears, Nose, Mouth, Throat: see HPI Respiratory: no symptoms reported Cardiovascular: no symptoms reported Gastrointestinal: no symptoms reported Genitourinary: no symptoms reported : Yes Musculoskeletal: no symptoms reported Skin: no symptoms reported Psychiatric/Neurological: See HPI Past Lmdgppy-Sdmfii-Uuepag Hx Past Med/Social Hx: Reviewed Nursing Past Med/Soc Hx Patient Social History 2nd Hand Smoke Exposure: No Recent Foreign Travel: No Contact w/Someone Who Travel: No Recent Infectious Disease Expo: No Recent Hopitalizations: No Immunizations Up To Date Tetanus Booster (TDap): Unknown PED Vaccines UTD: Yes Seasonal Allergies Seasonal Allergies: No Past Medical History Surgeries: Yes Tonsillectomy Respiratory: No Cardiac: No Neurological: No Reproductive Disorders: No Female Reproductive Disorders: Denies Sexually Transmitted Disease: No Genitourinary: No Gastrointestinal: No Musculoskeletal: No Endocrine: No HEENT: No Cancer: No Psychosocial: No Integumentary: No Blood Disorders: No Family Medical History FH: cancer 19 FATHER No Pertinent Family Hx Physical Exam Vital Signs Vital Signs - First Documented 04/23/20 16:50 Temp 36.8 Pulse 87 Resp 16 B/P (MAP) 117/75 (89) Pulse Ox 99 O2 Delivery Room Air Capillary Refill : Less Than 3 Seconds Height, Weight, BMI Height: 5'5.00" Weight: 200lbs. 0oz. 90.689471ae; 37.00 BMI Method:Stated General Appearance: WD/WN, no apparent distress HEENT: PERRL/EOMI, normal ENT inspection, TMs normal, pharynx normal Neck: normal inspection Cardiovascular: regular rate, rhythm, no murmur, other (Trace lower extremity edema) Respiratory: lungs clear, normal breath sounds, no respiratory distress Gastrointestinal: non tender, soft, other (Appropriately gravid for gestational age) Extremities: non-tender, normal inspection Psychiatric: alert, oriented x 3 Crainal Nerves: normal hearing, normal speech, PERRL Motor/Sensory: no motor deficit, no sensory deficit Skin: normal color, warm/dry Progress/Results/Core Measures Results/Orders Lab Results Laboratory Tests Test 04/23/20 16:55 04/23/20 17:29 Range/Units Urine Color YELLOW Urine Clarity CLEAR Urine pH 6.0 5-9 Urine Specific [place] 1.020 1.016-1.022 Urine Protein NEGATIVE NEGATIVE Urine Glucose (UA) NEGATIVE NEGATIVE Urine Ketones NEGATIVE NEGATIVE Urine Nitrite NEGATIVE NEGATIVE Urine Bilirubin NEGATIVE NEGATIVE Urine Urobilinogen 0.2 < = 1.0 MG/DL Urine Leukocyte Esterase TRACE H NEGATIVE Urine RBC (Auto) NEGATIVE NEGATIVE Urine RBC NONE /HPF Urine WBC 2-5 /HPF Urine Squamous Epithelial Cells 2-5 /HPF Urine Crystals NONE /LPF Urine Bacteria NEGATIVE /HPF Urine Casts NONE /LPF Urine Mucus NEGATIVE /LPF Urine Culture Indicated NO White Blood Count 10.9 4.3-11.0 10^3/uL Red Blood Count 4.58 3.80-5.11 10^6/uL Hemoglobin 12.3 11.5-16.0 g/dL Hematocrit 39 35-52 % Mean Corpuscular Volume 85 80-99 fL Mean Corpuscular Hemoglobin 27 25-34 pg Mean Corpuscular Hemoglobin Concent 32 32-36 g/dL Red Cell Distribution Width 14.2 10.0-14.5 % Platelet Count 228 130-400 10^3/uL Mean Platelet Volume 11.1 9.0-12.2 fL Immature Granulocyte % (Auto) 2 % Neutrophils (%) (Auto) 76 H 42-75 % Lymphocytes (%) (Auto) 13 12-44 % Monocytes (%) (Auto) 8 0-12 % Eosinophils (%) (Auto) 1 0-10 % Basophils (%) (Auto) 0 0-10 % Neutrophils # (Auto) 8.3 H 1.8-7.8 10^3/uL Lymphocytes # (Auto) 1.4 1.0-4.0 10^3/uL Monocytes # (Auto) 0.8 0.0-1.0 10^3/uL Eosinophils # (Auto) 0.1 0.0-0.3 10^3/uL Basophils # (Auto) 0.0 0.0-0.1 10^3/uL Immature Granulocyte # (Auto) 0.2 H 0.0-0.1 10^3/uL Sodium Level 135 135-145 MMOL/L Potassium Level 4.3 3.6-5.0 MMOL/L Chloride Level 106 98-107 MMOL/L Carbon Dioxide Level 19 L 21-32 MMOL/L Anion Gap 10 5-14 MMOL/L Blood Urea Nitrogen 7 7-18 MG/DL Creatinine 0.60 0.60-1.30 MG/DL Estimat Glomerular Filtration Rate > 60 BUN/Creatinine Ratio 12 Glucose Level 101 70-105 MG/DL Uric Acid 3.3 2.6-7.2 MG/DL Calcium Level 8.7 8.5-10.1 MG/DL Corrected Calcium 9.2 8.5-10.1 MG/DL Total Bilirubin 0.3 0.1-1.0 MG/DL Aspartate Amino Transf (AST/SGOT) 24 5-34 U/L Alanine Aminotransferase (ALT/SGPT) 12 0-55 U/L Alkaline Phosphatase 67 40-136 U/L Lactate Dehydrogenase 306 H 125-220 U/L C-Reactive Protein High Sensitivity 0.81 H 0.00-0.50 MG/DL B-Type Natriuretic Peptide 22.1 <100.0 PG/ML Total Protein 6.9 6.4-8.2 GM/DL Albumin 3.4 3.2-4.5 GM/DL My Orders Orders - JASON EDUARDO MD BNP (04/23/20 16:56) Cbc With Automated Diff (04/23/20 16:56) Comprehensive Metabolic Panel (04/23/20 16:56) Hs C Reactive Protein (04/23/20 16:56) Ua Culture If Indicated (04/23/20 16:56) Ed Iv/Invasive Line Start (04/23/20 16:56) Uric Acid (04/23/20 16:57) LDH (04/23/20 16:57) Metoclopramide Injection (Reglan Injecti (04/23/20 18:00) Diphenhydramine Injection (Benadryl Inje (04/23/20 18:00) Lactated Ringers (Lr 1000 Ml Iv Solution (04/23/20 18:00) Medications Given in ED Vital Signs/I&O 04/23/20 04/23/20 16:50 18:52 Temp 36.8 Pulse 87 79 Resp 16 16 B/P (MAP) 117/75 (89) 114/76 Pulse Ox 99 100 O2 Delivery Room Air Room Air Blood Pressure Mean: 89 Progress Progress Note : Progress Note Patient's headache and associated chest discomfort resolved completely shortly after treatment with IV hydration, Reglan and Benadryl. Prescriptions were provided. Labs and vital signs did not suggest preeclampsia. Departure Impression Primary Impression: Acute headache Qualified Codes: R51 - Headache Additional Impression: with 26 completed weeks gestation Disposition: 01 HOME, SELF-CARE Condition: Improved Departure-Patient Inst. Decision time for Depature: 18:30 Referrals: NO,LOCAL PHYSICIAN (PCP/Family) Primary Care Physician Patient Instructions: Headache, Adult (DC) Add. Discharge Instructions: Stay well-hydrated, eat a well-balanced diet, and get plenty of rest. Follow-up with Dr. Jara at your regularly scheduled appointments. For future headaches you may try Tylenol. If Tylenol is ineffective you may take Reglan as prescribed in combination with 1 Benadryl (25 mg). For headaches not effectively treated by these measures, you may try Excedrin. Call your doctor with any questions or concerns. For significant worsening of condition or other concerns, please return to the emergency room.. All discharge instructions reviewed with patient and/or family. Voiced understanding. Scripts Metoclopramide HCl (Reglan) 10 Mg Tablet 10 MG PO BID, #10 TAB Prov: JASON EDUARDO MD 04/23/20 Copy Copies To 1: DELORES JARA JOSHUA T MD Apr 23, 2020 18:43
[2020-04-23 18:52] VITALS: BP 114/76
== END 2020-04-23 18:52 | disposition home or self-care (01) ==
LOC: EDUNIT# 16:39 → ER 16:41
DX: O26.892 Other specified pregnancy related conditions, second trimester (principal); R51.9 Headache, unspecified; Z91.048 Other nonmedicinal substance allergy status; Z3A.26 26 weeks gestation of pregnancy
CPT/HCPCS: 36415; 80053; 81000; 83615; 83880; 84550; 85025; 86141

== ENCOUNTER 2020-07-07 19:32 | Outpatient (CLI) | payer MEDICAID ==
[~2020-07-07] VITALS: Ht 165.1 cm; Wt 111.7 kg
[~2020-07-07 19:32] MED LIST changes: +METO-310 PO
[2020-07-07 19:55] LABS: BILIRUBIN,URINE NEGATIVE (NEGATIVE); CLARITY,URINE SL CLOUDY; COLOR,URINE YELLOW; GLUCOSE, URINE (UA) NEGATIVE (NEGATIVE); KETONES,URINE NEGATIVE (NEGATIVE); LEUKOCYTE ESTERASE ,URINE 2+ (NEGATIVE); NITRITE,URINE NEGATIVE (NEGATIVE); PROTEIN,URINE NEGATIVE (NEGATIVE)
[2020-07-07 19:57] VITALS: BP 123/57
[2020-07-07 20:00] VITALS: BP 123/57
[2020-07-07 20:06] LABS: BACTERIA,URINE TRACE /HPF
[2020-07-07] MEDS ORDERED: PREN-142 PO (20:26)
--- NOTE | 2020-07-08 08:03 | Physician Query-Final Dx ---
[facility] 07/08/20 0803: Clinic Account Progress/Dx Physician Query: Please give diagnosis Please include # weeks gestation Date of Service Jul 07, 2020 at 19:32 TAMMI DILL DO 07/08/20 1449: Clinic Account Progress/Dx DIAGNOSIS: Diagnosis 36 week gestation Lower extremity edema round ligament pain [facility] Jul 08, 2020 08:03 TAMMI DILL DO Jul 08, 2020 14:49
== END 2020-07-07 20:30 | disposition home or self-care (01) ==
LOC: LDRP 19:32 → WSo 19:32
PROVIDERS: ATTEND Obstetrics & Gynecology
DX: O12.03 Gestational edema, third trimester (principal); O26.893 Other specified pregnancy related conditions, third trimester; R10.2 Pelvic and perineal pain; Z3A.36 36 weeks gestation of pregnancy
CPT/HCPCS: 81000; 87077; 87088; 99212

== ENCOUNTER 2020-07-18 04:31 | Outpatient (CLI) | payer MEDICAID ==
[~2020-07-18] VITALS: Ht 162.6 cm; Wt 113.0 kg
[~2020-07-18 04:31] MED LIST changes: +PREN-142 PO
[2020-07-18 04:48] VITALS: BP 125/70
[2020-07-18 04:48] LABS: BILIRUBIN,URINE NEGATIVE (NEGATIVE); CLARITY,URINE SL CLOUDY; COLOR,URINE YELLOW; GLUCOSE, URINE (UA) NEGATIVE (NEGATIVE); KETONES,URINE NEGATIVE (NEGATIVE); LEUKOCYTE ESTERASE ,URINE 2+ (NEGATIVE); NITRITE,URINE NEGATIVE (NEGATIVE); PROTEIN,URINE NEGATIVE (NEGATIVE)
[2020-07-18 04:50] VITALS: BP 125/70
[2020-07-18 04:57] LABS: BACTERIA,URINE FEW /HPF; WBC,URINE 25-50 /HPF
[2020-07-18 05:00] VITALS: BP 125/70
[2020-07-18 09:30] VITALS: BP 120/69
--- NOTE | 2020-07-18 14:23 | Diagnostic Imaging Report ---
INDICATION: Evaluate amniotic fluid volume. TECHNIQUE: Multiple real-time grayscale images were obtained over the gravid uterus. COMPARISON: None FINDINGS: There is a single live fetus in a cephalic presentation. heart rate was recorded at 147 bpm. Amniotic fluid index is 6 cm. Biophysical profile score is normal at 8 out of 8. IMPRESSION: Normal biophysical profile score 8 out of 8. Dictated by: Dictated on workstation # [id number]
--- NOTE | 2020-07-19 07:56 | Physician Query-Final Dx ---
[facility] 07/19/20 0756: Clinic Account Progress/Dx Physician Query: Please give diagnosis Please include # weeks gestation Date of Service Jul 18, 2020 at 04:31 DELORES YOUNG DO 07/19/20 0946: Clinic Account Progress/Dx DIAGNOSIS: Diagnosis 38 week IUP Vaginal discharge [facility] Jul 19, 2020 07:56 DELORES YOUNG DO Jul 19, 2020 09:46
== END 2020-07-18 09:45 | disposition home or self-care (01) ==
LOC: WSo 04:31 → LDRP 04:35 → WSo 09:45
PROVIDERS: ATTEND Obstetrics & Gynecology
DX: O41.8X30 Other specified disorders of amniotic fluid and membranes, third trimester, not applicable or unspecified (principal); Z3A.38 38 weeks gestation of pregnancy
CPT/HCPCS: 76805; 76819; 81000; 87088; G0463; 99213

== ENCOUNTER 2020-07-18 22:57 | Inpatient (IN) | payer MEDICAID ==
[~2020-07-18] VITALS: Ht 165.1 cm; Wt 113.7 kg
[2020-07-19] VITALS (16 sets, daily range): BP systolic 109–133; BP diastolic 63–84
[2020-07-19] MEDS ORDERED: AMPICILLIN 2,000 MG/14.8 ML (IV USE) ONE (00:25)
[2020-07-19] MEDS ORDERED: WATER (STERILE) FOR INJECTION 20 ML ONE (00:25)
[2020-07-19] MEDS ORDERED: D5 LR IV SOLUTION 1,000 ML IV ONE (00:26)
[2020-07-19] MEDS ORDERED: AMPICILLIN FOR IV USE 2,000 MG in WATER (STERILE) FOR INJECTION 14.8 ML IV SCH (00:35)
[2020-07-19] MEDS ORDERED: D5 LR IV SOLUTION 1,000 ML IV SCH (00:45)
[2020-07-19 01:24] LABS: BASOPHILS % (AUTO) 0 % (0-10); EOSINOPHILS # (AUTO) 0.1 10^3/uL (0.0-0.3); EOSINOPHILS % (AUTO) 1 % (0-10); HEMATOCRIT 42 % (35-52); HEMOGLOBIN 13.5 g/dL (11.5-16.0); LYMPHOCYTES # (AUTO) 1.5 10^3/uL (1.0-4.0); LYMPHOCYTES % (AUTO) 12 % (12-44); MEAN CORPUSCULAR HEMOGLOBIN 27 pg (25-34); MEAN CORPUSCULAR HGB CONC 32 g/dL (32-36); MEAN CORPUSCULAR VOLUME 83 fL (80-99); MEAN PLATELET VOLUME 11.4 fL (9.0-12.2); MONOCYTES # (AUTO) 0.9 10^3/uL (0.0-1.0); MONOCYTES % (AUTO) 7 % (0-12); NEUTROPHILS # (AUTO) 10.1 10^3/uL (1.8-7.8); NEUTROPHILS % (AUTO) 79 % (42-75); PLATELET COUNT 228 10^3/uL (130-400); WHITE BLOOD COUNT 12.8 10^3/uL (4.3-11.0)
[2020-07-19] MEDS ORDERED: AMPICILLIN FOR IV USE 1,000 MG in WATER (STERILE) FOR INJECTION 7.4 ML IV SCH (04:45)
[2020-07-19] MEDS ORDERED: CATHETER FLUSH 10 ML SYR IV SCH ×2 (06:00→14:00)
[2020-07-19] MEDS ORDERED: OXYTOCIN PRE-MIX DRIP 500 ML IV SCH (07:30)
[2020-07-19] MEDS ORDERED: fentaNYL 2 mcg/ml BUPIVA 0.125 100 ML ONE (08:39)
--- NOTE | 2020-07-19 08:40 | History & Physical-OB ---
OB - Chief Complaint & HPI Date/Time Date of Admission: Date of Admission: Jul 19, 2020 at 00:56 Date seen by a Provider: Jul 19, 2020 Time Seen by a Provider: 08:30 Chief Complaint/History OB-Reason for Admission/Chief: Onset of Labor Hx : 3 Hx Para: 1 Expected Date of Delivery: Jul 29, 2020 Gestational Age in Weeks: 38 Gestational Age in Days: 4 Admission Nurse Assessment Rev: Yes History of Labs O pos Antibody neg RI RPR NR HBsAg NR HIV NR GC neg GBS pos Allergies and Home Medications Allergies Uncoded Allergies: TAPE (Allergy, Unknown, 11/21/17) Patient Home Medication List Home Medication List Reviewed: Yes OB - History Hx of Present Care: Yes Ultrasounds: Normal mid trimester US Obstetrical Complications: None Medical Complications: None Delivery History Hx Blood Disorders: No Patient Past Medical History n/a Social History/Family History 2nd Hand Smoke Exposure: No Immunizations Hepatitis A: Yes Hepatitis B: Yes Tetanus Booster (TDap): Unknown Date of Influenza Vaccine: Feb 18, 2020 OB - Admission Exam Physical Exam Vitals: Vital Signs 07/19/20 07/19/20 07/19/20 00:00 06:00 07:00 Temp 36.5 Pulse 77 Resp 18 B/P (MAP) 133/70 (91) Pulse Ox 97 O2 Delivery Room Air HEENT: NCAT Heart: Rhythm Normal Lungs: Clear Abdomen: Gravid Extremities: Normal Reflexes: Normal Cervical Dilatation: 4cm Effacement: 75% Station: -1 Heart Rate: 130's Accelerations: Accelerations Present Decelerations: No Decelerations Short Term Variability: Present Snf Variability: Average (6-25) Contractions on Admission: < 5 Minutes Apart Intensity: Firm Labs Laboratory Tests Test 07/19/20 01:00 Range/Units White Blood Count 12.8 H 4.3-11.0 10^3/uL Red Blood Count 5.09 3.80-5.11 10^6/uL Hemoglobin 13.5 11.5-16.0 g/dL Hematocrit 42 35-52 % Mean Corpuscular Volume 83 80-99 fL Mean Corpuscular Hemoglobin 27 25-34 pg Mean Corpuscular Hemoglobin Concent 32 32-36 g/dL Red Cell Distribution Width 15.9 H 10.0-14.5 % Platelet Count 228 130-400 10^3/uL Mean Platelet Volume 11.4 9.0-12.2 fL Immature Granulocyte % (Auto) 1 % Neutrophils (%) (Auto) 79 H 42-75 % Lymphocytes (%) (Auto) 12 12-44 % Monocytes (%) (Auto) 7 0-12 % Eosinophils (%) (Auto) 1 0-10 % Basophils (%) (Auto) 0 0-10 % Neutrophils # (Auto) 10.1 H 1.8-7.8 10^3/uL Lymphocytes # (Auto) 1.5 1.0-4.0 10^3/uL Monocytes # (Auto) 0.9 0.0-1.0 10^3/uL Eosinophils # (Auto) 0.1 0.0-0.3 10^3/uL Basophils # (Auto) 0.0 0.0-0.1 10^3/uL Immature Granulocyte # (Auto) 0.2 H 0.0-0.1 10^3/uL OB - Assessment/Plan/Diagnosis Assessment Admission Dx 20 yo @ 38 weeks Active labor GBS pos Admission Status: Inpatient Order (span 2 midnights) Reason for Inpatient Admission: Active labor at term Plan Plan: Expectant Management DELORES YOUNG DO Jul 19, 2020 08:40
[2020-07-19] MEDS ORDERED: LIDOCAINE/EPI 2% 1:200,00 (XYLOCAINE) 10 ML VIAL ONE (08:53)
[2020-07-19] MEDS ORDERED: WITCH HAZEL(TUCKS) 40 EA JAR TOP PRN (09:30)
[2020-07-19] MEDS ORDERED: BENZOCAINE/MENTHOL (DERMOPLAST) 60 ML CAN TP PRN (09:30)
[2020-07-19] MEDS ORDERED: TETANUS,DIPTH,PERTUSS P/F (BOOSTRIX) 0.5 ML VIAL IM ONE (09:30)
[2020-07-19] MEDS ORDERED: DIBUCAINE (NUPERCAINAL) 1% OINT 30 GM TOP PRN (09:30)
[2020-07-19] MEDS ORDERED: HYDROcodone/APAP 5 MG/325 MG (LORTAB) TAB PO PRN (09:30)
[2020-07-19] MEDS ORDERED: MEASLES,MUMPS,RUBELLA 1 EA INJ SQ ONE (09:30)
--- NOTE | 2020-07-19 09:34 | OB Labor & Delivery Record ---
L&D History Date of Service Date of Service: Jul 19, 2020 History Expected Date of Delivery: Jul 29, 2020 Gestational Age in Weeks: 38 Hx : 3 Hx Para: 1 Complications Events: Routine care Operative Indications (Cesarea: N/A-Vaginal Delivery Intrapartal Events: None L&D Stage1 Stage One Onset of Labor - Date: Jul 19, 2020 Monitors and Tracing Monitor Mode: External Heart Rate: 115 Station: -3 Halfway Variability: Average (6-10) Presentation: Vertex Vital Signs VS - Last 72 Hours, by Label 07/19/20 07/19/20 07/19/20 07/19/20 00:00 01:00 02:00 03:00 Temp 36.5 Pulse 101 76 92 91 Resp 18 18 18 18 B/P (MAP) 121/83 (96) 121/84 (96) 117/74 (88) 111/72 (85) Pulse Ox 96 99 97 99 O2 Delivery Room Air Room Air Room Air Room Air 07/19/20 07/19/20 07/19/20 07/19/20 04:00 05:00 06:00 07:00 Pulse 91 91 77 77 Resp 18 18 18 18 B/P (MAP) 111/72 (85) 111/72 (85) 133/70 (91) Pulse Ox 99 99 96 97 O2 Delivery Room Air Room Air Room Air Room Air Rupture of Membranes Spontaneous Ruture of Membrane: No Amniotic Membrane Fluid Desc.: Clear Vaginal Bleeding Description: Normal Show Progress/Notes Patient admitted in active labor, she had a dysfunctional uterine contraction pattern, so Pitocin augmentation was started to a max dose of 4 mu. She rapidly progressed after AROM to complete and + 2 station without an epidural or any analgesia. L&D Stage2 Stage Two Stage II Date: Jul 19, 2020 Monitors and Tracing Monitor Mode: External Heart Rate: 115 Position: Right Occiput Anterior Presentation: Vertex Cord Descript/Complications Cord Vessel Description: 3 Vessels Delivery Type Infant Delivery Method: Spontaneous Vaginal Episiotomy/Perineal Laceration Laceraction(s)/Extensions: Yes Episiotomy Description: 1st degree Sutures Used: Vicryl Degree (describe repair) 1st degree vaginal and supraurethral laceration repaired using 3-0 rapide suture. Condition of Delivery 1 minute Comment: 8 5 minute Comment: 9 Notes Live male infant weight 8lbs 1 oz Condition of Condition of Infant: Living Exam: No Observed Abnormalities Resuscitation Resuscitation: N/A - Spontaneous Resp L&D Stage3 Stage Three Stage III Date: Jul 19, 2020 Pictocin Pitocin Administration Comment: 30 mu wide open Placenta Delivery Placenta Delivery: Spontaneous Delivery Summary Summary Estimated blood loss (mL): 300 Attending at delivery: Delores Young DO Condition of Delivery Examined: Cervix Examined, Uterus Explored Post Hemorrhage: No Condition of Mother stable Condition of Infant (s) stable DELORES YOUNG DO Jul 19, 2020 09:34
[2020-07-19] MEDS: OXYTOCIN PRE-MIX DRIP 500 ML IV SCH ×2 (09:37→16:17)
[2020-07-19] MEDS: IBUPROFEN 600 MG (MOTRIN) TAB PO SCH ×2 (11:35→17:40)
[2020-07-20] MEDS: DOCUSATE SODIUM 100 MG (COLACE) CAP PO SCH ×2 (00:16→09:26)
[2020-07-20] MEDS: IBUPROFEN 600 MG (MOTRIN) TAB PO SCH ×2 (00:16→09:26)
[2020-07-20 00:40] VITALS: BP 111/65
[2020-07-20 06:02] LABS: BASOPHILS % (AUTO) 0 % (0-10); EOSINOPHILS # (AUTO) 0.1 10^3/uL (0.0-0.3); EOSINOPHILS % (AUTO) 1 % (0-10); HEMATOCRIT 36 % (35-52); HEMOGLOBIN 11.5 g/dL (11.5-16.0); LYMPHOCYTES # (AUTO) 1.6 10^3/uL (1.0-4.0); LYMPHOCYTES % (AUTO) 15 % (12-44); MEAN CORPUSCULAR HEMOGLOBIN 26 pg (25-34); MEAN CORPUSCULAR HGB CONC 32 g/dL (32-36); MEAN CORPUSCULAR VOLUME 83 fL (80-99); MEAN PLATELET VOLUME 11.4 fL (9.0-12.2); MONOCYTES # (AUTO) 0.7 10^3/uL (0.0-1.0); MONOCYTES % (AUTO) 7 % (0-12); NEUTROPHILS # (AUTO) 8.2 10^3/uL (1.8-7.8); NEUTROPHILS % (AUTO) 76 % (42-75); PLATELET COUNT 180 10^3/uL (130-400); WHITE BLOOD COUNT 10.8 10^3/uL (4.3-11.0)
[2020-07-20 06:30] VITALS: BP 107/50
[2020-07-20] MEDS ORDERED: PRENATAL VITAMIN 1 EA TAB PO SCH (07:00)
--- NOTE | 2020-07-20 08:45 | Postpartum Progress Note ---
Note Note Day # 1 Subjective: Patient is without complaints. Ambulating, voiding. Tolerating a regular diet without nausea or vomiting. Normal lochia. Pain is well controlled with oral pain medications. Objective: Physical Exam: General - Alert and oriented, no apparent distress Abdomen - Soft, appropriately tender to palpation, non-distended, fundus firm at umbilicus Extremities - no edema, negative Mirtha's bilaterally Assessment: PPD 1 NVD Plan: Routine care. Encourage breast feeding. Encourage ambulation. Ferrous sulfate supplementation. Plan for discharge today if peds release Vitals - Labs Vital Signs - I&O Vital Signs Date Time Temp Pulse Resp B/P (MAP) Pulse Ox O2 Delivery O2 Flow Rate FiO2 07/20/20 06:30 36.6 86 20 107/50 (69) 97 Room Air 07/20/20 00:40 36.6 87 20 111/65 (80) 95 Room Air 07/19/20 19:20 36.7 95 20 118/74 (89) 99 Room Air 07/19/20 17:40 36.3 108 20 117/72 (87) 97 Room Air 07/19/20 14:06 36.5 92 18 109/63 (78) 96 Room Air 07/19/20 09:08 90 18 126/79 (95) Room Air 07/19/20 08:55 102 18 124/67 (86) Room Air I & O 07/20/20 07:00 Intake Total 2000 ml Balance 2000 ml Labs Laboratory Tests 07/20/20 05:29: White Blood Count 10.8, Red Blood Count 4.36, Hemoglobin 11.5, Hematocrit 36, Mean Corpuscular Volume 83, Mean Corpuscular Hemoglobin 26, Mean Corpuscular Hemoglobin Concent 32, Red Cell Distribution Width 15.8H, Platelet Count 180, Mean Platelet Volume 11.4, Immature Granulocyte % (Auto) 1, Neutrophils (%) (Auto) 76H, Lymphocytes (%) (Auto) 15, Monocytes (%) (Auto) 7, Eosinophils (%) (Auto) 1, Basophils (%) (Auto) 0, Neutrophils # (Auto) 8.2H, Lymphocytes # (Auto) 1.6, Monocytes # (Auto) 0.7, Eosinophils # (Auto) 0.1, Basophils # (Auto) 0.0, Immature Granulocyte # (Auto) 0.1 DELORES YOUNG DO Jul 20, 2020 08:45
[2020-07-20] MEDS ORDERED: FERROUS SULF 325 MG (IRON) TAB PO SCH (09:00)
[2020-07-20] MEDS ORDERED: BENZ78AE5 TP (09:13)
[2020-07-20] MEDS ORDERED: IBUP-844 PO (09:13)
[2020-07-20] MEDS ORDERED: FERR325T18 PO (09:13)
[2020-07-20] MEDS ORDERED: DCS100C PO (09:13)
[2020-07-20] MEDS ORDERED: ACHD5005 PO (09:13)
--- NOTE | 2020-07-20 09:14 | Discharge Inst-Women's Service ---
Discharge Inst-Women's Serv Depart Medication/Instructions New, Converted or Re-Newed RX: RX on Chart Final Diagnosis PPD 1 NVD Problems Reviewed?: Yes Consults/Follow Up Additional Follow Up: Yes Orders/Referrals Dr. Young in 6weeks Activity Activity: Activity as Tolerated Driving Instructions: No Driving for 1 Week NO SMOKING: NO SMOKING Nothing Inside Vagina: No Douching, No Organ, No Tampons Diet Discharge Diet: No Restrictions Symptoms to Report to : Bleeding Excessive, Pain Increased, Fever Over 101 Degrees F, Vaginal Bleeding Increase, Questions/Concerns For Any Problems or Questions: Contact Your Physician DELORES YOUNG DO Jul 20, 2020 09:14
[2020-07-20 10:45] VITALS: BP 110/74
[2020-07-20 13:56] VITALS: BP 111/72
[2020-07-20 14:44] VITALS: BP 111/72
== END 2020-07-20 14:30 | disposition home or self-care (01) | DRG 807 ==
LOC: WSo 22:57 → LDRP 22:58 → WSo 07-19 00:56 → LDRP 07-19 12:26
PROVIDERS: ADMIT Obstetrics & Gynecology; ATTEND Obstetrics & Gynecology
PROC: 10E0XZZ Delivery of Products of Conception, External Approach (ICD-10-PCS; principal; 2020-07-19)
PROC: 10907ZC Drainage of Amniotic Fluid, Therapeutic from Products of Conception, Via Natural or Artificial Opening (ICD-10-PCS; 2020-07-19)
PROC: 0HQ9XZZ Repair Perineum Skin, External Approach (ICD-10-PCS; 2020-07-19)
DX: O99.824 Streptococcus B carrier state complicating childbirth (principal); Z37.0 Single live birth; Z3A.38 38 weeks gestation of pregnancy; O70.0 First degree perineal laceration during delivery
CPT/HCPCS: 36415; 85025; 86850; 86900; 86901; 99212

== ENCOUNTER → 2020-11-15 | Outpatient (CLI) | payer MEDICAID ==
[~2020-11-15] MED LIST changes: +BENZ78AE5 TP; +DCS100C PO; +FERR325T18 PO
--- NOTE | 2020-11-15 10:50 | Diagnostic Imaging Report ---
PROCEDURE: Pelvic comp/transvaginal sonogram. TECHNIQUE: Complete transabdominal and transvaginal pelvic ultrasound was performed. In addition, limited pelvic Doppler was performed. INDICATION: Right-sided pelvic pain and bleeding. Patient has an IUD. The uterus is anteverted measuring 6.9 x 4.3 x 5.8 cm. The endometrium is 4 mm in thickness. IUD is appropriately centered in the endometrial canal. No myometrial mass is detected. The right ovary measures 4.3 x 3.3 x 3.0 cm and the left ovary measures 2.5 x 1.0 x 1.47 cm. There is blood flow to both ovaries. Right ovary does contain a 3.4 x 2.8 x 2.9 cm cyst, simple in appearance. No free fluid is detected. IMPRESSION: 1. The IUD appears to be appropriately centered in the endometrial canal. 2. A 3.4 cm simple right ovarian cyst. Dictated by: Dictated on workstation # [id number]
== END ==
LOC: RAD 10:00
PROVIDERS: ATTEND Obstetrics & Gynecology
DX: N83.201 Unspecified ovarian cyst, right side (principal)
CPT/HCPCS: 76830; 76856

== ENCOUNTER → 2021-08-26 | Outpatient (CLI) | payer MEDICAID ==
[~2021-08-26] MED LIST changes: -DCS100C PO; +DOCU-239 PO
== END ==
LOC: LABNPT 10:15
PROVIDERS: ATTEND Obstetrics & Gynecology
DX: Z11.3 Encounter for screening for infections with a predominantly sexual mode of transmission (principal)
CPT/HCPCS: 87491; 87591

== ENCOUNTER 2021-11-22 12:07 | Emergency (ER) | payer MEDICAID ==
[~2021-11-22] VITALS: Ht 165 cm; Wt 86.0 kg
--- NOTE | 2021-11-22 12:33 | ED GU-Female ---
General Chief Complaint: - Reproductive Stated Complaint: ABNORMAL VAG BLEEDING Nursing Triage Note: PT TO ED W/ C/O HEAVY VAGINAL BLEEDING ONSET YESTERDAY. REPORTS HER PERIOD STARTED YESTERDAY ET SHE HAS BEEN "GOING THROUGH 2-3 TAMPONS/PADS AN HOUR". PT DENIES ABD CRAMPING OR PAIN TO THIS RN. NO OTHER C/O VOICED. ALSO REPORTS SHE DID TAKE A TEST HER PERIOD STARTED 1 DAY LATE ET REPORTS THE TEST WAS NEGATIVE. Source: patient Exam Limitations: no limitations History of Present Illness Date Seen by Provider: Nov 22, 2021 Time Seen by Provider: 12:25 Initial Comments Patient is a 21-year-old G3, P2 who presents to the emergency department today with a chief complaint of heavy vaginal bleeding. Onset yesterday. Her last normal menstrual cycle was October 25 to . Last delivery was in July 2020. Patient states that she has a little bit of discomfort in her right low pelvis extending down into her right thigh. No recent trauma. She is not nauseous, vomiting. No diarrhea, dysuria, abnormal vaginal discharge. She took a couple of ibuprofen about an hour prior to arrival. She is concerned about the amount of "clots" that she is seeing when she changes her pad and tampon. She states she is changing 2-3 every hour. She has never had a menstrual cycle this heavy in the past. She takes no daily medications, she has never been told that she is anemic. She states she took a home test yesterday that was negative. Mild headache today. She states she feels "dehydrated" and a little dizzy when she first stands up. All other review of systems reviewed and negative except as stated Timing/Duration: yesterday Severity/Quality: severe Activities at Onset: none Associated Symptoms: other (headache) Allergies and Home Medications Allergies Uncoded Allergies: TAPE (Allergy, Unknown, 11/21/17) Patient Home Medication List Home Medication List Reviewed: Yes Benzocaine/Menthol (Dermoplast Pain Relieving [place]) 78 Gm Aerosol, 56 ML TP UD PRN for PAIN- SEE INSTRUCTIONS Prescribed by: DELORES YOUNG on 07/20/20912 Docusate Sodium (Dok) 100 Mg Capsule, 100 MG PO BID PRN for CONSTIPATION-1ST LINE Prescribed by: DELORES YOUNG on 07/20/20912 Ferrous Sulfate (Ferrous Sulfate) 325 Mg Tablet, 325 MG PO DAILY Prescribed by: DELORES YOUNG on 07/20/20912 Hydrocodone Bit/Acetaminophen (HYDROcodone/APAP 5 MG/325 MG TAB) 1 Tab Tab, 1 EA PO Q4H PRN for PAIN-MODERATE (5-7) Prescribed by: DELORES YOUNG on 07/20/20912 Ibuprofen (Ibu) 600 Mg Tablet, 600 MG PO Q6HR Prescribed by: DELORES YOUNG on 07/20/20912 Vit No.124/Iron/FA ( Vitamin Tablet) 1 Each Tablet, 1 EACH PO, (Reported) Entered as Reported by: IJEOMA GARCIA on 07/07/202025 Review of Systems Review of Systems Constitutional: see HPI EENTM: no symptoms reported Respiratory: no symptoms reported Cardiovascular: no symptoms reported Gastrointestinal: no symptoms reported Genitourinary: other (vaginal bleeding) : No LMP: Nov 21, 2021 Musculoskeletal: no symptoms reported Psychiatric/Neurological: Headache All Other Systemes Reviewed Negative Unless Noted: Yes Past Iaffvmp-[id number]-Kjxnjd Hx Patient Social History Tobacco Use?: No Use of E-Cig and/or Vaping dev: No Substance use?: No Alcohol Use?: No Pt feels they are or have been: No Immunizations Up To Date Tetanus Booster (TDap): Unknown PED Vaccines UTD: Yes Seasonal Allergies Seasonal Allergies: No Past Medical History Surgery/Hospitalization HX: DEPRESSION Surgeries: Yes Tonsillectomy Respiratory: No Cardiac: No Neurological: No Last Menstrual Period: Nov 21, 2021 Reproductive Disorders: No Female Reproductive Disorders: Denies Sexually Transmitted Disease: No Genitourinary: No Gastrointestinal: No Musculoskeletal: No Endocrine: No HEENT: No Cancer: No Psychosocial: No Integumentary: No Blood Disorders: No Family Medical History FH: cancer 19 FATHER No Pertinent Family Hx Physical Exam Vital Signs Vital Signs - First Documented 11/22/21 12:12 Temp 36.8 Pulse 77 Resp 20 B/P (MAP) 111/68 (82) O2 Delivery Room Air O2 Flow Rate 98.00 Capillary Refill : Less Than 3 Seconds Height, Weight, BMI Height: 5'5.00" Weight: 200lbs. 0oz. [id number]; 31.00 BMI Method:Stated General Appearance: WD/WN, no apparent distress HEENT: PERRL/EOMI, other (conjunctivae normal) Neck: full range of motion Cardiovascular: regular rate, rhythm (70's) Respiratory: lungs clear, normal breath sounds, no respiratory distress, no accessory muscle use, other (tenderness right chest wall to palpation) Gastrointestinal: normal bowel sounds, non tender, soft, other (mild suproapubic tenderness) Extremities: normal range of motion, normal inspection Neurologic/Psychiatric: alert, normal mood/affect, oriented x 3 Skin: normal color, warm/dry Progress/Results/Core Measures Suspected Sepsis SIRS Temperature: Pulse: 77 Respiratory Rate: 20 Laboratory Tests 11/22/21 12:58: White Blood Count 6.0 Blood Pressure 111 /68 Mean: 82 Laboratory Tests 11/22/21 12:58: Platelet Count 250 Results/Orders Lab Results Laboratory Tests Test 11/22/21 12:58 Range/Units White Blood Count 6.0 4.3-11.0 10^3/uL Red Blood Count 5.16 H 3.80-5.11 10^6/uL Hemoglobin 14.1 11.5-16.0 g/dL Hematocrit 45 35-52 % Mean Corpuscular Volume 86 80-99 fL Mean Corpuscular Hemoglobin 27 25-34 pg Mean Corpuscular Hemoglobin Concent 32 32-36 g/dL Red Cell Distribution Width 13.3 10.0-14.5 % Platelet Count 250 130-400 10^3/uL Mean Platelet Volume 10.3 9.0-12.2 fL Immature Granulocyte % (Auto) 0 % Neutrophils (%) (Auto) 67 42-75 % Lymphocytes (%) (Auto) 22 12-44 % Monocytes (%) (Auto) 8 0-12 % Eosinophils (%) (Auto) 3 0-10 % Basophils (%) (Auto) 1 0-10 % Neutrophils # (Auto) 4.0 1.8-7.8 10^3/uL Lymphocytes # (Auto) 1.3 1.0-4.0 10^3/uL Monocytes # (Auto) 0.5 0.0-1.0 10^3/uL Eosinophils # (Auto) 0.2 0.0-0.3 10^3/uL Basophils # (Auto) 0.0 0.0-0.1 10^3/uL Immature Granulocyte # (Auto) 0.0 0.0-0.1 10^3/uL Serum Test, Qualitative NEGATIVE NEGATIVE My Orders Orders - SEE JAIME MD Cbc With Automated Diff (11/22/21 12:37) Hcg,Qualitative Serum (11/22/21 12:37) Ketorolac Injection (Toradol Injection) (11/22/21 12:45) Vital Signs/I&O 11/22/21 12:12 Temp 36.8 Pulse 77 Resp 20 B/P (MAP) 111/68 (82) O2 Delivery Room Air O2 Flow Rate 98.00 Capillary Refill : Less Than 3 Seconds Blood Pressure Mean: 82 Progress Note : Time: 13:47 Progress Note Patient declined Toradol "because I don't like needles". She has a normal hemoglobin and her serum preg was negative. I advised OTC naproxen and fluids. return precautions provided. All questions are sought and answered. Departure Impression Primary Impression: Menorrhagia with regular cycle Additional Impression: Headache Qualified Codes: R51.9 - Headache, unspecified Disposition: 01 HOME, SELF-CARE Condition: Stable Departure-Patient Inst. Decision time for Depature: 13:48 Referrals: CHUY AGUSTIN DO (PCP) Primary Care Physician DELORES YOUNG DO (Family) Primary Care Physician Patient Instructions: Heavy Periods (DC) Add. Discharge Instructions: You can take [id number]-are-fzadstl Aleve or generic naproxen 2 pills twice daily with food for the duration of your period to help decrease your heavy vaginal bleeding and help with pain. Drink plenty fluids to stay well-hydrated. You can take in addition to the naproxen, [id number] Excedrin 2 pills every 6 hours for headache as needed. Please come back to the emergency room for reevaluation if you develop a passing out spell, shortness of breath, increased pain or fever. Follow-up with your primary provider at [facility] for further evaluation as needed. Copy Copies To 1: CHUY AGUSTIN KATHRYN M MD Nov 22, 2021 12:33
[2021-11-22] MEDS ORDERED: KETOROLAC 60 MG/2 ML VIAL IM ONE (12:45)
[2021-11-22 13:07] LABS: BASOPHILS % (AUTO) 1 % (0-10); EOSINOPHILS # (AUTO) 0.2 10^3/uL (0.0-0.3); EOSINOPHILS % (AUTO) 3 % (0-10); HEMATOCRIT 45 % (35-52); HEMOGLOBIN 14.1 g/dL (11.5-16.0); LYMPHOCYTES # (AUTO) 1.3 10^3/uL (1.0-4.0); LYMPHOCYTES % (AUTO) 22 % (12-44); MEAN CORPUSCULAR HEMOGLOBIN 27 pg (25-34); MEAN CORPUSCULAR HGB CONC 32 g/dL (32-36); MEAN CORPUSCULAR VOLUME 86 fL (80-99); MEAN PLATELET VOLUME 10.3 fL (9.0-12.2); MONOCYTES # (AUTO) 0.5 10^3/uL (0.0-1.0); MONOCYTES % (AUTO) 8 % (0-12); NEUTROPHILS % (AUTO) 67 % (42-75); PLATELET COUNT 250 10^3/uL (130-400)
[2021-11-22 13:53] VITALS: BP 113/67
== END 2021-11-22 13:53 | disposition home or self-care (01) ==
LOC: EDUNIT# 12:07 → ER 12:08
DX: N92.0 Excessive and frequent menstruation with regular cycle (principal); R51.9 Headache, unspecified
CPT/HCPCS: 36415; 84703; 85025